=== PATIENT | female | born 1955 | race Caucasian/White ===

== ENCOUNTER → 2016-12-04 | Outpatient (CLI) | payer BC ==
--- NOTE | 2016-12-04 15:30 | BD ---
EXAMINATION TYPE: MG DEXA axial skeleton. DATE OF EXAM: 12/04/2016 1:42 PM COMPARISON: 2013 CLINICAL HISTORY: post menopausal Height: 5'7 Weight: 165 FRAX RISK QUESTIONS: Alcohol (3 or more units per day): no Family History (Parent hip fracture): no Glucocorticoids (More than 3mos): no (Ex: prednisone, prednisolone, methylprednisolone, dexamethasone, and hydrocortisone). History of Fracture in Adulthood: no Secondary Osteoporosis: 1. Type 1 Diabetes: no 2. Hyperthyroidism: no 3. Menopause before 45: no 4. Malnutrition: no 5. Chronic liver disease: no Rheumatoid Arthritis: no Current Tobacco Use: no RISK FACTORS HISTORY OF: Drink Alcohol: Postmenopausal woman: MEDICATIONS: Thyroid Medications: Which medication: Synthroid How Lon thyroid cancer Additional Medications: depression, blood pressure Additional History: 1981 thyroid cancer EXAM MEASUREMENTS: Bone mineral densitometry was performed using the [employer] System. Bone mineral density as measured about the Lumbar spine is: ----- L1-L4(G/cm2): 1.337 T Score Values are as follows: ----- L2: 1.5 ----- L3: 1.9 ----- L4: 1.8 ----- L1-L4.3 Bone mineral density has: Decreased -1.0% since study of: 11/03/2013 Bone mineral density about the R hip (g/cm2): 0.807 Bone mineral density about the L hip (g/cm2): 0.843 T Score values are as follows: -----R Neck: -1.7 -----L Neck: -1.4 -----R Intertrochanter: -0.8 -----L Intertrochanter: -1.4 Bone mineral density has: Decreased -1.1% since study of: 11/03/2013 IMPRESSION: Osteopenia (T Score between -2.5 and -1 as noted by T score values: Blade Hips There is slightly increased risk of fracture and the patient may be considered for treatment. Re-Screen 1-2 years. NOTE: T-SCORE=SD OF THE YOUNG ADULT MEAN.
--- NOTE | 2016-12-06 13:36 | MM ---
Reason for exam: screening (asymptomatic). Last mammogram was performed 8 years ago. History: Patient is postmenopausal. Family history of breast cancer in paternal grandmother at age 53. Physical Findings: A clinical breast exam by your physician is recommended on an annual basis and results should be correlated with mammographic findings. MG 3D Screening Mammo W/Cad Bilateral CC and MLO view(s) were taken. Prior study comparison: December 15, 2008, mammogram, performed at [facility]. The breast tissue is heterogeneously dense. This may lower the sensitivity of mammography. No significant changes when compared with prior studies. ASSESSMENT: Benign, BI-RAD 2 RECOMMENDATION: Routine screening mammogram of both breasts in 1 year.
== END | disposition home or self-care (01) ==
LOC: RADMAMWWP 13:34
PROVIDERS: ATTEND Family Medicine
DX: Z12.31 Encounter for screening mammogram for malignant neoplasm of breast (principal); Z78.0 Asymptomatic menopausal state; M85.88 Other specified disorders of bone density and structure, other site
CPT/HCPCS: 77080; 77063; G0202

== ENCOUNTER → 2017-01-15 | Outpatient (CLI) | payer BC | END | disposition home or self-care (01) | LOC: LABWHC1 12:56 | PROVIDERS: ATTEND Internal Medicine Endocrinology, Diabetes & Metabolism | DX: C73 Malignant neoplasm of thyroid gland (principal) | CPT/HCPCS: 36415; 84432; 84439; 84443; 86800 ==

== ENCOUNTER → 2018-03-22 | Outpatient (CLI) | payer BC ==
[2018-03-22 12:07] LABS: T4, Free (Free Thyroxine) 1.81 ng/dL (0.78-2.19)
[2018-03-22 19:49] LABS: Thyroglobulin <0.20 ng/mL (1.60-59.90)
== END | disposition home or self-care (01) ==
LOC: LABWHC1 11:15
PROVIDERS: ATTEND Internal Medicine Endocrinology, Diabetes & Metabolism
DX: C73 Malignant neoplasm of thyroid gland (principal); E89.0 Postprocedural hypothyroidism; M89.9 Disorder of bone, unspecified
CPT/HCPCS: 36415; 84432; 84439; 84443; 86800

== ENCOUNTER → 2018-07-16 | Outpatient (CLI) | payer MEDICARE, BC ==
[2018-07-16 17:57] LABS: T4, Free (Free Thyroxine) 1.3 ng/dL (0.80-1.80)
== END | disposition home or self-care (01) ==
LOC: LABWHC1 10:13
PROVIDERS: ATTEND Internal Medicine Endocrinology, Diabetes & Metabolism
DX: E03.9 Hypothyroidism, unspecified (principal); E55.9 Vitamin D deficiency, unspecified
CPT/HCPCS: 36415; 84439; 84443

== ENCOUNTER → 2018-07-16 | Outpatient (CLI) | payer MEDICARE, BC ==
--- NOTE | 2018-07-16 11:27 | US ---
EXAMINATION TYPE: US thyroid st tissue head/neck DATE OF EXAM: 07/16/2018 COMPARISON: F/U CLINICAL HISTORY: E04.1 THYROID NODULE. GLAND SIZE: Right Lobe: Surgically absent Left Lobe: 3.8 x 0.8 x 1.6 cm Isthmus Thickness: 0.28 cm NODULES RIGHT: # of nodules measured on right: 0 LEFT: # of nodules measured on left: 1 1. 0.5 X 0.6 x 0.5 cm hypoechoic solid nodule at the mid pole with well-defined margins. This nodu le is wider than tall and shows no intranodular vascularity. Prior size: 0.6 x 0.5 x 0.4 cm ISTHMUS: # of nodules measured in the isthmus: 1 1. 0.3 X 0.2 x 0.3 cm hypoechoic solid nodule at the left pole with well-defined margins. This nod ule is wider than tall and shows intranodular vascularity. Prior size: 0.4 x 0.2 x 0.3 cm Bilateral neck scanned, no evidence of lymphadenopathy. IMPRESSION: 1. Subcentimeter nodules. 2. No recurrent masses right thyroid bed
== END | disposition home or self-care (01) ==
LOC: RADUSWWP 09:43
PROVIDERS: ATTEND Internal Medicine Endocrinology, Diabetes & Metabolism
DX: E04.2 Nontoxic multinodular goiter (principal)
CPT/HCPCS: 76536

== ENCOUNTER → 2019-01-23 | Outpatient (CLI) | payer BC, MEDICARE ==
--- NOTE | 2019-01-24 09:57 | MM ---
Reason for exam: screening (asymptomatic). Last mammogram was performed 2 years and 2 months ago. History: Patient is postmenopausal, history of other cancer, and had first child at age 33. Family history of breast cancer in paternal grandmother at age 53. Physical Findings: A clinical breast exam by your physician is recommended on an annual basis and results should be correlated with mammographic findings. MG 3D Screening Mammo W/Cad Bilateral CC and MLO view(s) were taken. Prior study comparison: December 04, 2016, bilateral MG 3d screening mammo w/cad. December 15, 2008, mammogram, performed at [facility]. The breast tissue is heterogeneously dense. This may lower the sensitivity of mammography. No significant changes when compared with prior studies. ASSESSMENT: Benign, BI-RAD 2 RECOMMENDATION: Routine screening mammogram of both breasts in 1 year.
== END | disposition home or self-care (01) ==
LOC: RADMAMWWP 10:51
PROVIDERS: ATTEND Family Medicine
DX: Z12.31 Encounter for screening mammogram for malignant neoplasm of breast (principal)
CPT/HCPCS: 77063; 77067

== ENCOUNTER → 2019-07-28 | Outpatient (CLI) | payer BC, MEDICARE ==
[2019-07-29 01:56] LABS: Thyroid Peroxidase Antibodies <28.0 U/mL (0.0-60.0)
[2019-07-29 02:01] LABS: T4, Free (Free Thyroxine) 1.9 ng/dL (0.80-1.80)
== END | disposition home or self-care (01) ==
LOC: LABWHC1 16:23
PROVIDERS: ATTEND Internal Medicine
DX: C73 Malignant neoplasm of thyroid gland (principal)
CPT/HCPCS: 36415; 84439; 84443; 86376; 86800

== ENCOUNTER → 2020-08-30 | Outpatient (CLI) | payer BC, MEDICARE ==
--- NOTE | 2020-08-30 08:41 | CT ---
EXAMINATION TYPE: CT chest wo con DATE OF EXAM: 08/30/2020 COMPARISON: None HISTORY: 65-year-old female with dyspnea and atrial fibrillation (R06.00, Z87.891) TECHNIQUE: Contiguous axial scanning of the chest without IV contrast. Coronal and sagittal reconstru ctions performed. CT DLP: 189.0 mGycm Automated exposure control for dose reduction was used. FINDINGS: Heart normal size without pericardial effusion. Aortic root measures 4.0 cm. Ascending aorta aneurysmal at 4.3 cm. Conventional arch vessel branching anatomy. Minimal atherosclerotic calcifications distal aortic arch. Small calcified left hilar lymph nodes. No thoracic lymphadenopathy by CT size criteria. Some strandy atelectasis or scar within the anterior right midlung. Some additional strandy atelectas is inferior lingula. 4 mm left basilar pulmonary nodule, axial image 55. 3 mm subpleural pulmonary nodule periphery of the left upper lobe, axial image 8. No consolidation or pleural effusion. Tiny hiatal hernia. Visualized upper abdomen otherwise shows a 6.1 cm hypodense lesion within the upp er pole of the left kidney inadequately characterized on this noncontrast CT, suspected cyst. Bones: Mild degenerative change at the shoulders. Mild multilevel degenerative disc disease within th e thoracic spine. Scattered facet arthropathy of the lower thoracic spine. IMPRESSION: 1. A couple pulmonary nodules measuring up to 4 mm. Twelve-month follow-up CT recommended to reassess . 2. No acute pulmonary process. 3. Borderline aneurysmal aortic root at 4.0 cm and mildly aneurysmal ascending aorta at 4.3 cm. 4. A 6.1 cm hypodense lesion upper pole left kidney incompletely characterized on this noncontrast CT . A benign cyst is suspected and should be confirmed with a renal ultrasound.
== END | disposition home or self-care (01) ==
LOC: RADCTMAIN 07:29
PROVIDERS: ATTEND Family Medicine
DX: I71.2 Thoracic aortic aneurysm, without rupture (principal); R91.8 Other nonspecific abnormal finding of lung field; I48.0 Paroxysmal atrial fibrillation
CPT/HCPCS: 71250

== ENCOUNTER → 2021-04-04 | Outpatient (CLI) | payer BC, MEDICARE ==
--- NOTE | 2021-04-07 14:06 | MM ---
Reason for exam: screening (asymptomatic). Last mammogram was performed 2 years and 2 months ago. History: Patient is postmenopausal, history of other cancer, and had first child at age 33. Family history of breast cancer in paternal grandmother at age 53. Physical Findings: A clinical breast exam by your physician is recommended on an annual basis and results should be correlated with mammographic findings. MG 3D Screening Mammo W/Cad Bilateral CC and MLO view(s) were taken. Prior study comparison: January 23, 2019, bilateral MG 3d screening mammo w/cad. December 04, 2016, bilateral MG 3d screening mammo w/cad. The breast tissue is extremely dense which could obscure a lesion on mammography. Finding: There are typically benign diffuse/scattered fine calcifications in both breasts. No significant changes in finding since January 23, 2019 and December 04, 2016. ASSESSMENT: Benign, BI-RAD 2 RECOMMENDATION: Routine screening mammogram of both breasts in 1 year.
== END | disposition home or self-care (01) ==
LOC: RADMAMWWP 09:19
PROVIDERS: ATTEND Family Medicine
DX: Z12.31 Encounter for screening mammogram for malignant neoplasm of breast (principal)
CPT/HCPCS: 77063; 77067

== ENCOUNTER 2022-11-24 07:57 | Day surgery (SDC) | payer BC, MEDICARE ==
[2022-11-21 15:57] VITALS: BMI 25.0
[2022-11-24 08:47] VITALS: BP 152/71; PULSE 58; RESP 16; TEMP 97.5
== END 2022-11-24 09:10 | disposition home or self-care (01) ==
LOC: OR 07:57
PROVIDERS: ATTEND Internal Medicine
DX: I48.11 Longstanding persistent atrial fibrillation (principal); Z53.9 Procedure and treatment not carried out, unspecified reason

== ENCOUNTER → 2023-02-06 | Outpatient (CLI) | payer MEDICARE ==
[2023-02-06 21:39] LABS: Basophils # (A) 0.03 X 10*3/uL (0.00-0.10); Basophils % (A) 0.7 %; Eosinophils # (A) 0.08 X 10*3/uL (0.04-0.35); Eosinophils % (A) 1.8 %; HCT 42.1 % (37.2-46.3); HGB 13.2 g/dL (12.0-15.0); Immature Grans, Automated 0.5 %; Lymphocytes # (A) 1.12 X 10*3/uL (0.90-5.00); Lymphocytes % (A) 25.5 %; MCH 28.8 pg (27.0-32.0); MCHC 31.4 g/dL (32.0-37.0); MCV 91.9 fL (80.0-97.0); Mean Platelet Volume 9.7 fL (9.5-12.2); Monocytes # (A) 0.38 X 10*3/uL (0.20-1.00); Monocytes % (A) 8.7 %; NRBC Per 100 WBC 0 /100 WBCS (0.0-0.0); Neutrophils # (A) 2.76 X 10*3/uL (1.80-7.70); Neutrophils % (A) 62.8 %; Platelet Count 246 X 10*3/uL (140-440); RBC 4.58 X 10*6/uL (4.10-5.20); RDW 13.7 % (11.5-14.5); WBC 4.39 X 10*3/uL (4.50-10.00)
[2023-02-06 22:51] LABS: African American GFR (CKD) 74.8 (60.0-200.0); Anion Gap 11.2 mmol/L (10.00-18.00); Blood Urea Nitrogen 14.2 mg/dL (9.0-27.0); Carbon Dioxide 26.2 mmol/L (20.0-27.5); Non-African American GFR(CKD) 64.6 (60.0-200.0); Potassium 4.3 mmol/L (3.5-5.5)
== END | disposition home or self-care (01) ==
LOC: LABPAT 10:07
PROVIDERS: ATTEND Internal Medicine Clinical Cardiac Electrophysiology
DX: Z01.812 Encounter for preprocedural laboratory examination (principal); I48.0 Paroxysmal atrial fibrillation
CPT/HCPCS: 36415; 80051; 82565; 84520; 85025

== ENCOUNTER 2023-02-08 10:31 | Day surgery (SDC) | payer MEDICARE ==
[2023-02-08] MEDS ORDERED: ePHEDrine 50 MG/ML 1 ML VIAL ONE (11:59)
[2023-02-08] MEDS ORDERED: PROPOFOL 10 MG/ML 20 ML VIAL IV ONE (11:59)
[2023-02-08] MEDS ORDERED: fentaNYL (PF) 50 MCG/ML 2 ML AMP ONE (11:59)
[2023-02-08] MEDS ORDERED: MIDAZOLAM 2 MG/2 ML VIAL ONE (11:59)
[2023-02-08] MEDS ORDERED: PHENYLEPHRINE-0.9% NACL SYG 1,000 MCG/10 ML SYRINGE ONE (11:59)
[2023-02-08] MEDS ORDERED: LIDOCAINE 2% INJ 20 MG/ML (2 ML VIAL) ONE (11:59)
[2023-02-08] MEDS ORDERED: HEPARIN SODIUM,PORCINE 10,000 UNIT/ML 1 ML VIAL ONE (11:59)
[2023-02-08] MEDS ORDERED: SUCCINYLCHOLINE CHLORIDE 200 MG/10 ML VIAL IV ONE (11:59)
[2023-02-08] MEDS ORDERED: WATER FOR INJECTION, STERILE 10 ML VIAL IV ONE (11:59)
[2023-02-08] MEDS: SODIUM CHLORIDE 0.9% 1,000 ML IV SCH (12:02)
[2023-02-08] MEDS ORDERED: LIDOCAINE 1% INJ 10MG/ML (20 ML MDV) ONE (12:34)
[2023-02-08] MEDS ORDERED: HEPARIN SOD,PORK IN 0.45% NACL 25,000 UNIT in 0.45% NACL 1 250ML.BAG IV ONE (12:40)
[2023-02-08] MEDS ORDERED: LIDOCAINE 1% INJ 10MG/ML (20 ML MDV) SQ ONE (12:53)
[2023-02-08] MEDS ORDERED: IOPAMIDOL-250 100ML BTL IV ONE (14:37)
[2023-02-08] MEDS ORDERED: ACETAMINOPHEN TAB 325 MG TAB PO PRN (15:53)
--- NOTE | 2023-02-08 16:02 | P.HPCAR ---
History of Present Illness This is Dr. Smith dictating a consult on this patient The patient was interviewed and examined IMPRESSION / ASSESSMENT: Very long paroxysm of atrial fibrillation, failed amiodarone, with tiredness fatigue and dizzy spells Increased frequency over the last one year history of: About 1.5 y back Aortic regurgitation Mild ascending aortic aneurysm Dyslipidemia history of hypothyroidism on replacement therapy Moderately dilated left atrium with 3+ aortic regurgitation and 2+ mitral regurgitation PLAN: A. fib ablation, continue ELIQUIS HPI Patient continues to have atrial fibrillation, long paroxysms with RVR and quite symptomatic She is already on amiodarone and has failed therapy During atrial fibrillation she exhibits a left bundle branch block pattern on the EKG The episodes have been increasing in frequency and duration over the last one year Within the last week or so no loss of consciousness no chest discomfort no undue shortness of breath No respiratory symptoms no viral infections for bronchitis ROS: No fever chills or rigors, no cough, phlegm or expectoration, no nausea, vomiting or diarrhea, no hematuria, dysuria, no musculoskeletal complaints, no strokes or seizures, no skin lesions. EXAMINATION: Afebrile, pulse rate in the 60s, heart sounds are normal, normal S1 and normal S2 Lungs no rhonchi no crackles Blood pressure is normal 103/76. No lower extremity edema REVIEW OF LABS, ECG & MEDICAL DATA Currently on losartan and thyroxine Tika ELIQUIS amiodarone and diltiazem Physical Exam Vitals: Vital Signs Temp Pulse Resp BP Pulse Ox 02/08/23 10:38 98 F 68 18 133/76 96 Intake and Output 02/08/23 02/08/23 02/08/23 06:59 14:59 22:59 Intake Total 848 Balance 848 Intake: IV 848 Other: Weight 74.1 kg Past Medical History Past Medical History: Atrial Fibrillation, Cancer, Hyperlipidemia, Hypertension Additional Past Medical History / Comment(s): SOB,"2 leaky heart valves", enlarged aorta-not sure location, skin CA History of Any Multi-Drug Resistant Organisms: None Reported Past Surgical History: Tonsillectomy Additional Past Surgical History / Comment(s): partial thyroidectomy Past Anesthesia/Blood Transfusion Reactions: No Reported Reaction, Motion Sickness Additional Past Anesthesia/Blood Transfusion Reaction / Comment(s): No hx blood transfusion Smoking Status: Former smoker - Past Family History Mother Family Medical History: No Reported History Brother(s) Additional Family Medical History / Comment(s): "clot in the heart" Physical Examination Vital Signs Temp Pulse Resp BP Pulse Ox 02/08/23 10:38 98 F 68 18 133/76 96 Intake and Output 02/08/23 02/08/23 02/08/23 06:59 14:59 22:59 Intake Total 848 Balance 848 Intake: IV 848 Other: Weight 74.1 kg Results Current Medications Generic Name Dose Route Start Last Admin Trade Name Freq PRN Reason Stop Dose Admin Acetaminophen 650 mg 02/08/23 15:53 Acetaminophen Tab 325 Mg Tab PO 03/10/23 15:54 Q6HR PRN Mild Pain (Scale 1 to 3) Amiodarone HCl 100 mg 02/09/23 09:00 Amiodarone 100 Mg Tab PO 03/11/23 09:01 DAILY GUERRERO Apixaban 5 mg 02/08/23 21:00 Apixaban 5 Mg Tab PO 03/10/23 21:01 BID [facility] Protocol Ezetimibe 10 mg 02/09/23 09:00 Ezetimibe 10 Mg Tab PO 03/11/23 09:01 DAILY GUERRERO Sodium Chloride 1,000 mls @ 50 mls/hr 02/08/23 06:08 02/08/23 12:02 Saline 0.9% IV 03/10/23 06:09 820 mls .Q20H GUERRERO Administration Acetaminophen 1,000 mg/ IV 100 mls @ 400 mls/hr 02/08/23 15:53 Solution IVPB 02/08/23 16:07 ONCE ONE Losartan Potassium 25 mg 02/09/23 09:00 Losartan 25 Mg Tab PO 03/11/23 09:01 DAILY GUERRERO Non-Formulary Medication 150 mcg 02/08/23 16:00 Levothyroxine Sodium [Synthroid] PO 03/10/23 16:01 SUTUWETHSA GUERRERO Non-Formulary Medication 175 mcg 02/09/23 15:52 Levothyroxine Sodium [Synthroid] PO 03/11/23 15:53 MOFR GUERRERO Sertraline HCl 100 mg 02/09/23 09:00 Sertraline 100 Mg Tab PO 03/11/23 09:01 DAILY GUERRERO Sodium Chloride 12 ml 02/08/23 15:53 Sodium Chloride 0.9% Flush 10 Ml Syringe IV 03/10/23 15:54 Q12HR PRN Line Flush Intake and Output 02/08/23 02/08/23 02/08/23 06:59 14:59 22:59 Intake Total 848 Balance 848 Intake: IV 848 Other: Weight 74.1 kg Patient Weight 02/09/23 06:59 Weight 74.1 kg
--- NOTE | 2023-02-08 16:09 | P.EPPROC ---
- EP Procedure Note Electrophysiology Procedure Note: PROCEDURE A. fib ablation with PVI and left atrial roof ablation and 50 transseptal ablation DIAGNOSIS Long paroxysms of Atrial fibrillation, symptomatic, refractory to therapy with amiodarone RESULT No left atrial appendage mass seen on intracardiac echo/large left atrial appendage Evidence of pericardial thickening on intracardiac echo, preserved LV systolic function with septal bulge Successful A. fib ablation/pulmonary vein isolation of all veins using cryo- ablation Complete entrance block in all 4 veins confirmed No evidence for phrenic nerve injury Left atrial roof ablation with termination of atrial fibrillation Esophageal deflection YES, left-sided esophagus PROCEDURE DETAILS Written informed consent prior to procedure. Patient brought to the EP lab. General anesthesia given. Heparin administered. A city maintained above 300 seconds Both groins prepped and draped per protocol and venous sheaths placed. Esophagus intubated, circa catheter for temperature monitoring an endoscope for possible esophageal deflection. Phrenic nerve monitoring performed. Esophageal temperature monitoring performed. Esophageal deflection performed if circa catheter overlapping with the balloon or circa temperature less than 27.5C Intracardiac echocardiography performed. Pericardium evaluated. Left atrial appendage evaluated. Left atrium evaluated along with pulmonary veins Transseptal catheterization performed under fluoroscopic guidance and intracardiac echo guidance Cryoablation sheath exchanged, balloon catheter along with achieve catheter placed in the left atrium. Pulmonary veins isolated in the following sequence: Left superior pulmonary vein followed by left inferior pulmonary vein, followed by right inferior pulmonary vein and lastly right superior pulmonary vein. Phrenic nerve stimulation along with capture thresholds within the SVC and right superior pulmonary vein to identify the phrenic nerve proximity to the cryo- balloon. Pulmonary veins isolated and confirmed with entrance and exit block. Phrenic nerve integrity confirmed at the end of the procedure Ablation of the left atrial roof performed with sequential lesions from the left superior to the right superior pulmonary veins. Ablation of the electrograms confirmed When the line was completed, atrial fibrillation terminated during the last ablation and the patient converted to sinus rhythm Ablation of the left atrial septum performed with cannulation of the superior branch of the right inferior as well as the the inferior branch of the right superior vein to achieve ablation of the posterior septum of the left atrium. Ablation of electrograms confirmed Diagnostic catheters for the high right atrium, His bundle, coronary sinus placed. LA and RA pressures recorded RA pressure: 14/1/8 LA pressure: 15/3/9 Diagnostic EP study with coronary sinus pacing and recording Baseline measurements: Sinus cycle length 980 ms, IA interval 157 ms, QRS 112 and QT 410 ms AH 82 ms and HV 44 ms Sinus recovery times at 605 100 ms were 1068 and 1078 ms With straight pacing from the coronary sinus atrial fibrillation was induced After successful PVI and left atrial septal ablation, atrial fibrillation terminated with completion of the left atrial roof ablation Venous sheaths were removed and hemostasis assured with a closure device. Patient extubated and transferred to recovery Increase procedural time During ablation multiple attempts had to be made to move the esophagus a safe distance of the from the pulmonary vein draining cryoablation, to avoid excessive thermal cooling of the esophagus This took extra time and effort to keep the esophagus a safe distance away from the cryoablation balloon. Multiple attempts needed for successful cryoablation isolation of the common left pulmonary vein. This is a very large vein and multiple lesions were applied around the antrum the completely isolate this common pulmonary vein at an antral level. The esophagus was in close proximity and multiple attempts were needed to sequentially deflect the esophagus away from the prior balloon to minimize thermal injury to the esophagus PROCEDURES PERFORMED Diagnostic EP study CS pacing and recording Left and right transseptal catheterization Catheter the mapping of the tachycardia Intracardiac echocardiography Pulmonary vein isolation with transseptal and comprehensive EPS, 13229 Extended procedure duration Left atrial roof line, +[id number] Linear ablation left septum, left atrium, +[id number]
--- NOTE | 2023-02-08 16:15 | P.PRLE ---
RE: Kena Pham Dear May Kena Pham has symptomatically atrial fibrillation with a very long paroxysms that became worse about 6 months after she developed COVID. Today she underwent a diagnostic EP study and successful A. fib ablation. 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 Following that we will able to induce atrial fibrillation once again and therefore left atrial roof line was made Upon completion of the left atrial roof ablation for A. fib terminated and she went back into sinus rhythm Hopefully this results in significant reduction in her A. fib episodes and pertinent Amiodarone may be discontinued after 4 weeks Thank you for entrusting me with the care of the patient Warm regards Sincerely Jordan Smith
[2023-02-08] MEDS ORDERED: ACETAMINOPHEN IV (For NPO) 1,000 MG in EMPTY BAG 1 BAG IVPB ONE (16:30)
[2023-02-08] MEDS: APIXABAN 5 MG TAB PO SCH (19:48)
[2023-02-09] MEDS: SODIUM CHLORIDE 0.9% 1,000 ML IV SCH (02:15)
[2023-02-09 02:47] VITALS: PULSE 64
[2023-02-09] MEDS ORDERED: LEVOTHYROXINE 88 MCG TAB PO SCH (06:30)
--- NOTE | 2023-02-09 07:49 | P.DS ---
Providers Attending physician: Jordan Smith Primary care physician: [facility] Hospital Course: Patient was resting comfortably in bed. Mild sore throat No chest discomfort No breathing trouble On examination blood pressure 6/60 4 mmHg pulse rate in the 60s afebrile Breath sounds are clear no rhonchi no crackles Heart sounds S1 and S2 are normal Impression Long paroxysms of atrial fibrillation with RVR Hypertension Status post pulmonary vein isolation, ablation of the left atrial septum and left atrial roof ablation Atrial fibrillation terminated once the roof line was completed Plan Continue ELIQUIS Stop amiodarone after 6 weeks Hold diltiazem until seen in the office in a week's time Continue losartan Patient may go home today after lunch if hemodynamically stable Patient Condition at Discharge: Stable Plan - Discharge Summary New Discharge Prescriptions: Continue Levothyroxine Sodium [Synthroid] 150 mcg PO SUTUWETHSA Apixaban [Eliquis] 5 mg PO BID dilTIAZem HCL [dilTIAZem [id number] ER (CD)] 240 mg PO DAILY Cholecalciferol (Vitamin D3) [Vitamin D3 (125 MCG = 5,000 IU)] 50 mcg PO DAILY Levothyroxine Sodium [Synthroid] 175 mcg PO MOFR Sertraline [Zoloft] 100 mg PO DAILY Losartan [Cozaar] 25 mg PO DAILY Ezetimibe [Zetia] 10 mg PO DAILY Amiodarone [Cordarone] 100 mg PO DAILY Discharge Medication List Apixaban [Eliquis] 5 mg PO BID 11/21/22 [History] Cholecalciferol (Vitamin D3) [Vitamin D3 (125 MCG = 5,000 IU)] 50 mcg PO DAILY 11/21/22 [History] Ezetimibe [Zetia] 10 mg PO DAILY 11/21/22 [History] Levothyroxine Sodium [Synthroid] 150 mcg PO SUTUWETHSA 11/21/22 [History] Levothyroxine Sodium [Synthroid] 175 mcg PO MOFR 11/21/22 [History] Losartan [Cozaar] 25 mg PO DAILY 11/21/22 [History] Sertraline [Zoloft] 100 mg PO DAILY 11/21/22 [History] dilTIAZem HCL [dilTIAZem [id number] ER (CD)] 240 mg PO DAILY 11/21/22 [History] Amiodarone [Cordarone] 100 mg PO DAILY 02/06/23 [History] Activity/Diet/Wound Care/Special Instructions: Post EP study - Ablation instructions 1. Keep access sites dry for 2 days. 2. No heavy lifting or straining for 2 days. 3. Avoid bending the hips repeatedly for 2 days. 4. You may go up and down stairs slowly Call if the following is noted 1. Bleeding, increasing swelling or pain at the access sites. 2. Increasing chest discomfort, especially upon taking a deep breath. 3. Increasing shortness of breath, at rest or with exertion. 4. Undue cough / phlegm 5. Difficulty or pain while swallowing. 6. Pain or change in color in the extremities. 7. Fever, chills, rigors. 8. Increasing headache or neurologic symptoms. 9. Dizziness, fainting, palpitations Continue ELIQUIS Continue amiodarone for now and stop it in 6 weeks Discharge Disposition: HOME SELF-CARE
[2023-02-09 07:58] VITALS: BP 106/67; RESP 16; TEMP 98.1
[2023-02-09] MEDS: APIXABAN 5 MG TAB PO SCH (08:48)
[2023-02-09] MEDS ORDERED: SERTRALINE 100 MG TAB PO SCH (09:00)
[2023-02-09] MEDS ORDERED: LOSARTAN 25 MG TAB PO SCH (09:00)
[2023-02-09] MEDS ORDERED: AMIODARONE 100 MG TAB PO SCH (09:00)
[2023-02-09] MEDS ORDERED: EZETIMIBE 10 MG TAB PO SCH (09:00)
[2023-02-10] MEDS ORDERED: LEVOTHYROXINE 75 MCG TAB PO SCH (06:30)
== END 2023-02-09 13:25 | disposition home or self-care (01) ==
LOC: CATHEP 10:31 → 6NMEDSUR 15:30 → CATHEP 02-09 13:25
PROVIDERS: ATTEND Internal Medicine Clinical Cardiac Electrophysiology
DX: I48.0 Paroxysmal atrial fibrillation (principal); I71.21 Aneurysm of the ascending aorta, without rupture; I44.7 Left bundle-branch block, unspecified; I08.1 Rheumatic disorders of both mitral and tricuspid valves; I10 Essential (primary) hypertension; E78.5 Hyperlipidemia, unspecified; E03.9 Hypothyroidism, unspecified; Z79.01 Long term (current) use of anticoagulants; Z79.890 Hormone replacement therapy; Z79.899 Other long term (current) drug therapy
CPT/HCPCS: 93656; 93657; 94760; 86900; 86901; 86850; C1894 ×2; C1769 ×3; C1760; C1730 ×2; C1759; C1893; C1733; C1766; J2250; J0330; J1644 ×2; J2001 ×2; J3010; J2370; J2704; Q9966

== ENCOUNTER → 2023-06-12 | Outpatient (CLI) | payer MEDICARE ==
--- NOTE | 2023-06-12 20:08 | BD ---
EXAMINATION TYPE: Axial Bone Density DATE OF EXAM: 06/12/2023 CLINICAL HISTORY: 68 years old Female. ICD-10 CODE: N95.9 UNSPECIFIED MENOPAUSAL AND Height: 5 ft 6 1/2 in Weight: 165 FRAX RISK QUESTIONS: Alcohol (3 or more units per day): no Family History (Parent hip fracture): no Glucocorticoids (More than 3mos): no (Ex: prednisone, prednisolone, methylprednisolone, dexamethasone, and hydrocortisone). History of Fracture in Adulthood: no Secondary Osteoporosis: 1. Type 1 Diabetes: no 2. Hyperthyroidism: no 3. Menopause before 45: no 4. Malnutrition: no 5. Chronic liver disease: no Rheumatoid Arthritis: no Current Tobacco Use: no RISK FACTORS HISTORY OF: Surgery to Spine/Hip(right/left)/Wrist (right/left): no Family History of Osteoporosis: no Active: yes Diet low in dairy products/other sources of calcium: no Postmenopausal woman: yes Take estrogen and/or progesterone medications: no Lost more than 2 inches in height since high school: no Frequent falls: no Poor Health: good Hyperparathyroidism: no Adrenal Insufficiency: no MEDICATIONS: Thyroid Medications: yes Which medication: synthroid How Lon years Additional Medications: synthroid, eliquis, blood pressure, cholesterol, Additional History: EXAM MEASUREMENTS: Bone mineral densitometry was performed using the [employer] System. Bone mineral density as measured about the Lumbar spine is: ----- L1-L4(G/cm2): 1.273 T Score Values are as follows: ----- L1: 0.0 ----- L2: 0.3 ----- L3: 1.4 ----- L4: 1.1 ----- L1-L4: 0.8 Z Score Values are as follows: ----- L1: 1.3 ----- L2: 1.7 ----- L3: 2.8 ----- L4: 2.4 ----- L1-L4: 2.1 Bone mineral density has: decreased -4.8 % since study of: 2017 Bone mineral density about the R hip (g/cm2): 0.693 Bone mineral density about the L hip (g/cm2): 0.798 T Score values are as follows: -----R Neck: -2.5 -----L Neck: -1.7 -----R Total: -1.9 -----L Total: -1.3 Z Score values are as follows: -----R Neck: -1.0 -----L Neck: -0.3 -----R Total: -0.7 -----L Total: 0.0 Bone mineral density has: decreased -7.6 % since study of: 2017 FRAX%s: The graph provided illustrates a 14.8 % chance for a major osteoporotic fx and a 3.8 % chance for the hips probability for fx in 10 years time. IMPRESSION: Osteoporosis (T Score less than -2.5). There is increased fracture risk and therapy is usually indicated based on age. Re-Screen 1-2 years. NOTE: T-SCORE=SD OF THE YOUNG ADULT MEAN.
--- NOTE | 2023-06-13 08:49 | MM ---
Reason for Exam: Screening (asymptomatic). Last mammogram was performed 2 year(s) and 3 month(s) ago. Patient History: Menarche at age 12. First Full-Term at age 33. Late child-bearing (after 30). Postmenopausal. Other cancer. Paternal grandmother had breast cancer, age 53. Risk Values: Aaliyah 5 year model risk: 2.2%. NCI Lifetime model risk: 6.3%. Prior Study Comparison: 12/04/2016 Bilateral Screening Mammogram, [facility]. 01/23/2019 Bilateral Screening Mammogram, [facility]. 04/04/2021 Bilateral Screening Mammogram, [facility]. Tissue Density: The breast tissue is heterogeneously dense. This may lower the sensitivity of mammography. Findings: Analyzed By CAD. There is no suspicious group of microcalcifications or new suspicious mass. Overall Assessment: Negative, BI-RAD 1 Management: Screening Mammogram of both breasts in [address] [facility] will attempt to contact patient to return for supplemental views and ultrasound if indicated. Patient should continue monthly self-breast exams. A clinical breast exam by your physician is recommended on an annual basis. This exam should not preclude additional follow-up of suspicious palpable abnormalities. Note on Aaliyah scores and lifetime risk: 1. A Aaliyah score greater than 3% is considered moderate risk. If this is the case, consider specialist referral to assess eligibility for a risk reducing agent. 2. If overall lifetime risk for the development of breast cancer is 20% or higher, the patient may qualify for future screening with alternating mammogram and breast MRI. Electronically signed and approved by: Lexa Crump DO
== END | disposition home or self-care (01) ==
LOC: RADBDWWP 12:34
PROVIDERS: ATTEND Student in an Organized Health Care Education/Training Program
DX: Z12.31 Encounter for screening mammogram for malignant neoplasm of breast (principal); M81.0 Age-related osteoporosis without current pathological fracture; M85.852 Other specified disorders of bone density and structure, left thigh; Z78.0 Asymptomatic menopausal state; Z80.3 Family history of malignant neoplasm of breast
CPT/HCPCS: 77063; 77067; 77080

== ENCOUNTER 2024-08-15 08:43 | Day surgery (SDC) | payer MEDICARE ==
[~2024-08-15 08:43] MED LIST: SODIUM CHLORIDE 0.9% 500 ML 500 ML IV SCH
[2024-08-15 09:16] VITALS: TEMP 97.8
[2024-08-15] MEDS: IV FLUID CONTINUATION 1,000 ML IV ONE ×3 (09:25→10:31)
[2024-08-15] MEDS: SODIUM CHLORIDE 0.9% 500 ML 500 ML IV SCH (09:27)
[2024-08-15] MEDS ORDERED: PROPOFOL 10 MG/ML 20 ML VIAL IV ONE (09:55)
[2024-08-15] MEDS ORDERED: HEPARIN SODIUM,PORCINE 10,000 UNIT/ML 1 ML VIAL ONE (09:55)
[2024-08-15] MEDS ORDERED: LIDOCAINE 1% INJ 10MG/ML (20 ML MDV) ONE (09:55)
[2024-08-15 10:03] LABS: African American GFR (CKD) >90 (>60 ml/min/1.73 sqM); Anion Gap 7 mmol/L; Blood Urea Nitrogen 19 mg/dL (7-17); Calcium 8.9 mg/dL (8.4-10.2); Carbon Dioxide 28 mmol/L (22-30); Chloride 103 mmol/L (98-107); Glucose 80 mg/dL (74-99); Non-African American GFR(CKD) 83 (>60 ml/min/1.73 sqM); Potassium 4.2 mmol/L (3.5-5.1); Sodium 138 mmol/L (137-145)
--- NOTE | 2024-08-15 10:14 | P.TEE ---
Description of Procedure(s): Procedure performed: Transesophageal Echocardiogram with color flow doppler, pulsed wave doppler and continuous wave doppler, synchronized cardioversion Moderate conscious sedation: Moderate conscious sedation was supplied by anesthesia, see separate report. Complications: none Indications: atrial flutter with RVR PROCEDURE: After the risks, benefits and alternatives of the above mentioned procedure was explained in detail with the patient, informed consent was obtained. Patient was brought to the lab in a fasting state. Patient was given sedation by anesthesia, see separate report. The throat was sprayed with Hurricane to anesthetize the throat. A lubricated Omni probe was then introduced into the esophagus and stomach and multiple views were obtained. 2D echo with color flow doppler, pulsed wave doppler and continuous wave doppler was utilized. Agitated saline bubbles were injected to assess for any intra- atrial shunt. The probe was then removed. There was no thrombus noted and therefore patient underwent synchronized cardioversion x 1 with 200J with resultant sinus rhythm. Patient tolerated the procedure well. Patient was transferred to the post procedure area in stable and satisfactory condition. FINDINGS: 1. The aortic valve is tricuspid and function normally with trace aortic insufficiency. 2. The mitral valve appears be normal with mild regurgitation. 3. Tricuspid valve appears to be normal with trace aortic insufficiency. 4. The interatrial septum is intact. No evidence of PFO. 5. Left atrial appendage is large and free of clot. 6. Left ventricular ejection fraction 55%
[2024-08-15 10:34] VITALS: RESP 16
[2024-08-15] MEDS: APIXABAN 5 MG TAB PO SCH (11:15)
[2024-08-15 11:32] VITALS: BP 124/78; PULSE 65
== END 2024-08-15 11:51 | disposition home or self-care (01) ==
LOC: OR 08:43
PROVIDERS: ATTEND Internal Medicine
DX: I35.1 Nonrheumatic aortic (valve) insufficiency (principal); I48.0 Paroxysmal atrial fibrillation; I10 Essential (primary) hypertension; E78.5 Hyperlipidemia, unspecified; E07.9 Disorder of thyroid, unspecified; F41.9 Anxiety disorder, unspecified; F32.A Depression, unspecified; Z87.891 Personal history of nicotine dependence; Z79.890 Hormone replacement therapy; Z79.899 Other long term (current) drug therapy
CPT/HCPCS: 93312; 93320; 93325; 92960; 80048; J1644; J2003; J2704

== ENCOUNTER → 2024-10-03 | Outpatient (CLI) | payer MEDICARE ==
[2024-10-03 20:20] LABS: HCT 41.5 % (37.2-46.3); HGB 13.6 g/dL (12.0-15.0); MCH 29.1 pg (27.0-32.0); MCHC 32.8 g/dL (32.0-37.0); MCV 88.7 FL (80.0-97.0); Mean Platelet Volume 9.8 FL (9.5-12.2); NRBC Per 100 WBC 0 X 10*3/uL (0.00-0.01); Platelet Count 266 X 10*3/uL (140-440); RBC 4.68 X 10*6/uL (4.10-5.20); RDW 13.5 % (11.5-14.5); WBC 5.65 X 10*3/uL (4.50-10.00)
[2024-10-03 20:49] LABS: Blood Urea Nitrogen 18.1 mg/dL (9.0-27.0); Carbon Dioxide 24.8 mmol/L (21.6-31.8); Chloride 102 mmol/L (96-109); Potassium 4.4 mmol/L (3.5-5.5); Sodium 137 mmol/L (135-145)
== END | disposition home or self-care (01) ==
LOC: LABPAT 13:30
PROVIDERS: ATTEND Internal Medicine Clinical Cardiac Electrophysiology
DX: I48.19 Other persistent atrial fibrillation (principal)
CPT/HCPCS: 80051; 82565; 84520; 85027

== ENCOUNTER → 2024-10-03 | Outpatient (CLI) | payer MEDICARE ==
--- NOTE | 2024-10-03 16:00 | US ---
EXAMINATION TYPE: US thyroid st tissue head/neck DATE OF EXAM: 10/03/2024 COMPARISON: NONE CLINICAL INDICATION: Female, 69 years old with history of C73 MALIGNANT NEOPLASM OF THYROID GLAND; Ri ght thyroid gland removed. TECHNIQUE: Grayscale and color Doppler imaging of the thyroid gland. FINDINGS: GLAND SIZE: Right Lobe: Surgically absent Left Lobe: 4.2 x 1.4 x 1.1 cm Overall Parenchyma: homogeneous Isthmus Thickness: 0.3 cm NODULES RIGHT: Surgically absent LEFT: # of nodules measured on left: 1 1. 0.7 X 0.6 x 0.6 cm, upper mid, solid or almost completely solid, hypoechoic nodule, which is wid er than tall, with smooth margins, without echogenic foci. Prior size: 0.5 x 0.6 x 0.5 cm ISTHMUS: # of nodules measured in the isthmus: 1 1. 0.4 X 0.2 x 0.3 cm solid or almost completely solid, hypoechoic nodule, which is taller than wid e, with smooth margins, without echogenic foci. Prior size: 0.3 x 0.2 x 0.3 cm Bilateral neck scanned, no evidence of lymphadenopathy. IMPRESSION: Persistent prominent heterogeneous left thyroid lobe with stable 2 small subcentimeter so lid nodules. [facility], , 10/03/2024 3:57 PM
[2024-10-03 21:40] LABS: T4, Free (Free Thyroxine) 1.63 ng/dL (0.80-1.80)
== END | disposition home or self-care (01) ==
LOC: RADUSWWP 13:25
PROVIDERS: ATTEND Internal Medicine
DX: C73 Malignant neoplasm of thyroid gland (principal)
CPT/HCPCS: 76536; 84432; 84439; 84443; 86800

== ENCOUNTER 2025-02-06 10:05 | Inpatient (IN) | payer MEDICARE ==
--- NOTE | 2025-02-06 10:36 | ED ---
SOB HPI - General Chief Complaint: Shortness of Breath Stated Complaint: SOB,Afib Time Seen by Provider: 02/06/25 10:14 Source: patient Mode of arrival: ambulatory Limitations: no limitations - History of Present Illness Initial Comments: 69-year-old female with past medical history of A-fib, a flutter with ablation who presents to the emergency department with rapid heart rate. Patient has had issues with shortness of breath and racing heart when she lays down at night. She follows with Dr. Ewing and with Dr. Smith. She had an ablation 3 months ago. Continues to take metoprolol and Eliquis. She did take her medications this morning. She states she wore heart monitor a week ago and is waiting for results. Symptoms only seem to come on during the middle of the night. She feels like she cannot breathe. Does admit to some lower extremity swelling. No fevers, chills or cough. No history of congestive heart failure or coronary disease. No other alleviating, precipitating or modifying factors - Related Data Home Medications Medication Instructions Recorded Confirmed Apixaban [Eliquis] 5 mg PO BID 11/21/22 02/06/25 Ezetimibe [Zetia] 10 mg PO DAILY 11/21/22 02/06/25 Levothyroxine Sodium [Synthroid] 150 mcg PO SUTUWETHSA 11/21/22 02/06/25 Levothyroxine Sodium [Synthroid] 175 mcg PO MOFR 11/21/22 02/06/25 Losartan [Cozaar] 25 mg PO DAILY 11/21/22 02/06/25 Sertraline [Zoloft] 100 mg PO DAILY 11/21/22 02/06/25 Metoprolol Succinate [Metoprolol 50 mg PO DAILY 08/11/24 02/06/25 Succinate ER] Cholecalciferol (Vitamin D3) 50 mcg PO DAILY 02/06/25 02/06/25 [Vitamin D3 (50 Mcg = 2000 Iu)] Sertraline [Zoloft] 50 mg PO DAILY 02/06/25 02/06/25 hydrOXYzine pamoate [Vistaril] 50 mg PO HS 02/06/25 02/06/25 Allergies Allergy/AdvReac Type Severity Reaction Status Date / Time No Known Allergies Allergy Verified 02/06/25 12:30 Review of Systems ROS Statement: Those systems with pertinent positive or pertinent negative responses have been documented in the HPI. ROS Other: All systems not noted in ROS Statement are negative. Past Medical History Past Medical History: Atrial Fibrillation, Cancer, Hyperlipidemia, Hypertension, Osteoarthritis (OA), Thyroid Disorder Additional Past Medical History / Comment(s): SOB ,"2 leaky heart valves", enlarged aorta-not sure location, skin CA, see dr Smith's h & p History of Any Multi-Drug Resistant Organisms: None Reported Past Surgical History: Cardiac Ablation, Tonsillectomy Additional Past Surgical History / Comment(s): partial thyroidectomy Past Anesthesia/Blood Transfusion Reactions: No Reported Reaction, Motion Sickness Additional Past Anesthesia/Blood Transfusion Reaction / Comment(s): No hx blood transfusion Past Psychological History: Anxiety, Depression Smoking Status: Former smoker - Past Family History Mother Family Medical History: AFIB Brother(s) Additional Family Medical History / Comment(s): "clot in the heart" General Exam Limitations: no limitations General appearance: alert, in no apparent distress Head exam: Present: atraumatic, normocephalic, normal inspection Eye exam: Present: normal appearance, PERRL, EOMI. Absent: scleral icterus, conjunctival injection, periorbital swelling ENT exam: Present: normal exam, mucous membranes moist Neck exam: Present: normal inspection. Absent: tenderness, meningismus, lymphadenopathy Respiratory exam: Present: normal lung sounds bilaterally. Absent: respiratory distress, wheezes, rales, rhonchi, stridor Cardiovascular Exam: Present: tachycardia, irregular rhythm, normal heart sounds. Absent: systolic murmur, diastolic murmur, rubs, gallop, clicks GI/Abdominal exam: Present: soft, normal bowel sounds. Absent: distended, tenderness, guarding, rebound, rigid Extremities exam: Present: normal inspection, full ROM, normal capillary refill. Absent: tenderness, pedal edema, joint swelling, calf tenderness Back exam: Present: normal inspection Neurological exam: Present: alert, oriented X3, CN II-XII intact Psychiatric exam: Present: normal affect, normal mood Skin exam: Present: warm, dry, intact, normal color. Absent: rash Course Vital Signs 02/06/25 02/06/25 02/06/25 10:08 10:22 10:31 Temperature 97.5 F L Pulse Rate 148 H 151 H Pulse Rate [ 154 H Club Lounge Attendant ] Respiratory 22 17 Rate Blood Pressure 118/82 O2 Sat by Pulse 94 L Oximetry 02/06/25 02/06/25 02/06/25 11:15 11:30 12:00 Temperature Pulse Rate 146 H 75 75 Pulse Rate [ [employer] Lounge Attendant ] Respiratory 20 16 12 Rate Blood Pressure 96/83 96/83 107/77 O2 Sat by Pulse 92 L 91 L 91 L Oximetry 02/06/25 02/06/25 12:30 13:00 Temperature Pulse Rate 76 76 Pulse Rate [ Club Lounge Attendant ] Respiratory 19 17 Rate Blood Pressure 111/79 118/80 O2 Sat by Pulse 95 93 L Oximetry Medical Decision Making - Medical Decision Making Was pt. sent in by a medical professional or institution (, PA, ANTIQUE REFINISHER, urgent care, hospital, or skilled nursing...) When possible be specific @ -[No] Did you speak to anyone other than the patient for history (EMS, parent, family, police, friend...)? What history was obtained from this source @ -[No] Did you review nursing and triage notes (agree or disagree)? Why? @ -[I reviewed and agree with nursing and triage notes] Were old charts reviewed (outside hosp., previous admission, EMS record, old EKG, old radiological studies, urgent care reports/EKG's, skilled nursing records)? Report findings @ -[No old charts were reviewed] Differential Diagnosis (chest pain, altered mental status, abdominal pain women, abdominal pain men, vaginal bleeding, weakness, fever, dyspnea, syncope, headache, dizziness, GI bleed, back pain, seizure, CVA, palpatations, mental health, musculoskeletal)? @ -[not applicable] EKG interpreted by me (3pts min.). @ -Yes and demonstrates possible atrial flutter with a rate of 151. QRS 142. QRS 101. QTc of 393. No acute ST segment elevations or depressions Repeat EKG done at 1213 demonstrates continued a flutter with a rate of 76. QRS 96. QTc of 448. Inverted T waves in leads III, aVF as well as V3 through V5 X-rays interpreted by me (1pt min.). @ -[None done] CT interpreted by me (1pt min.). @ -[None done] U/S interpreted by me (1pt. min.). @ -[None done] What testing was considered but not performed or refused? (CT, X-rays, U/S, labs)? Why? @ -[None] What meds were considered but not given or refused? Why? @ -[None] Did you discuss the management of the patient with other professionals (professionals i.e. , PA, ANTIQUE REFINISHER, lab, RT, psych nurse, social sciences lecturer, trademark paralegal, teacher, senior officer, dependency case manager)? Give summary @ -[No] Was smoking cessation discussed for >3mins.? @ -[No] Was critical care preformed (if so, how long)? @ -[No] Were there social determinants of health that impacted care today? How? (Homelessness, low income, unemployed, alcoholism, drug addiction, transportation, low edu. Level, literacy, decrease access to med. care, custodial, rehab)? @ -[No] Was there de-escalation of care discussed even if they declined (Discuss DNR or withdrawal of care, Hospice)? DNR status @ -[No] What co-morbidities impacted this encounter? (DM, HTN, Smoking, COPD, CAD, Cancer, CVA, ARF, Chemo, Hep., AIDS, mental health diagnosis, sleep apnea, morbid obesity)? @ -[None] Was patient admitted / discharged? Hospital course, mention meds given and route, prescriptions, significant lab abnormalities, going to OR and other pertinent info. @ -[hospital course] Undiagnosed new problem with uncertain prognosis? @ -[No] Drug Therapy requiring intensive monitoring for toxicity (Heparin, Nitro, Insulin, Cardizem)? @ -[No] Were any procedures done? @ -[No] Diagnosis/symptom? @ -[default] Acute, or Chronic, or Acute on Chronic? @ -[default] Uncomplicated (without systemic symptoms) or Complicated (systemic symptoms)? @ -[default] Side effects of treatment? @ -[No] Exacerbation, Progression, or Severe Exacerbation? @ -[No] Poses a threat to life or bodily function? How? (Chest pain, USA, MD, pneumonia, PE, COPD, DKA, ARF, appy, cholecystitis, CVA, Diverticulitis, Homicidal, Suicidal, threat to staff... and all critical care pts) @ -[No] - Lab Data Result diagrams: 02/06/25 10:46 02/06/25 10:46 Lab Results 02/06/25 02/06/25 02/06/25 Range/Units 10:46 10:46 10:46 WBC 5.55 (4.50-10.00) 10*3/uL RBC 4.57 (4.10-5.20) 10*6/uL Hgb 13.3 (12.0-15.0) g/dL Hct 40.0 (37.2-46.3) % MCV 87.5 (80.0-97.0) fL MCH 29.1 (27.0-32.0) pg MCHC 33.3 (32.0-37.0) g/dL Plt Count 248 (140-440) 10*3/uL MPV 9.4 L (9.5-12.2) fL Immature Gran % (Auto) 0.2 % Neutrophils % 62.7 % Lymphocytes % 27.0 % Monocytes % 7.9 % Eosinophils % 1.8 % Basophils % 0.4 % Immature Gran # 0.01 (0.00-0.04) 10*3/uL Neutrophils # 3.48 (1.80-7.70) 10*3/uL Lymphocytes # 1.50 (0.90-5.00) 10*3/uL Monocytes # 0.44 (0.20-1.00) 10*3/uL Eosinophils # 0.10 (0.04-0.35) 10*3/uL Basophils # 0.02 (0.00-0.10) 10*3/uL PT 11.8 (10.0-12.5) sec INR 1.1 (<1.2) APTT 24.2 (22.0-30.0) sec Sodium 137 (137-145) mmol/L Potassium 3.9 (3.5-5.1) mmol/L Chloride 104 (98-107) mmol/L Carbon Dioxide 21 L (22-30) mmol/L Anion Gap 12 mmol/L BUN 17 (7-17) mg/dL Creatinine 0.75 (0.52-1.04) mg/dL Est GFR (CKD-EPI)AfAm >90 (>60 ml/min/1.73 sqM) Est GFR (CKD-EPI)NonAf 81 (>60 ml/min/1.73 sqM) Glucose 88 (74-99) mg/dL Plasma Lactic Acid Jackson (0.7-2.0) mmol/L Calcium 9.4 (8.4-10.2) mg/dL Total Bilirubin 0.8 (0.2-1.3) mg/dL AST 20 (14-36) U/L ALT 24 (4-34) U/L Alkaline Phosphatase 56 (38-126) U/L Troponin I (0.000-0.034) ng/mL NT-Pro-B Natriuret Pep 4080 pg/mL Total Protein 6.4 (6.3-8.2) g/dL Albumin 3.9 (3.5-5.0) g/dL TSH 1.820 (0.465-4.680) mIU/L 02/06/25 02/06/25 Range/Units 10:46 10:46 WBC (4.50-10.00) 10*3/uL RBC (4.10-5.20) 10*6/uL Hgb (12.0-15.0) g/dL Hct (37.2-46.3) % MCV (80.0-97.0) fL MCH (27.0-32.0) pg MCHC (32.0-37.0) g/dL Plt Count (140-440) 10*3/uL MPV (9.5-12.2) fL Immature Gran % (Auto) % Neutrophils % % Lymphocytes % % Monocytes % % Eosinophils % % Basophils % % Immature Gran # (0.00-0.04) 10*3/uL Neutrophils # (1.80-7.70) 10*3/uL Lymphocytes # (0.90-5.00) 10*3/uL Monocytes # (0.20-1.00) 10*3/uL Eosinophils # (0.04-0.35) 10*3/uL Basophils # (0.00-0.10) 10*3/uL PT (10.0-12.5) sec INR (<1.2) APTT (22.0-30.0) sec Sodium (137-145) mmol/L Potassium (3.5-5.1) mmol/L Chloride (98-107) mmol/L Carbon Dioxide (22-30) mmol/L Anion Gap mmol/L BUN (7-17) mg/dL Creatinine (0.52-1.04) mg/dL Est GFR (CKD-EPI)AfAm (>60 ml/min/1.73 sqM) Est GFR (CKD-EPI)NonAf (>60 ml/min/1.73 sqM) Glucose (74-99) mg/dL Plasma Lactic Acid Jackson 1.1 (0.7-2.0) mmol/L Calcium (8.4-10.2) mg/dL Total Bilirubin (0.2-1.3) mg/dL AST (14-36) U/L ALT (4-34) U/L Alkaline Phosphatase (38-126) U/L Troponin I <0.012 (0.000-0.034) ng/mL NT-Pro-B Natriuret Pep pg/mL Total Protein (6.3-8.2) g/dL Albumin (3.5-5.0) g/dL TSH (0.465-4.680) mIU/L Disposition Clinical Impression: Atrial flutter with rapid ventricular response, Pulmonary edema Disposition: ADMITTED IP TO THIS HOSP Condition: Stable Is patient prescribed a controlled substance at d/c from ED?: No Referrals: Alejandra Alva DO [Primary Care Provider] - 1-2 days Time of Disposition: 13:10 Decision to Admit Reason: Admit from EC Decision Date: 02/06/25 Decision Time: 13:10
[2025-02-06 11:09] LABS: Basophils # (A) 0.02 10*3/uL (0.00-0.10); Basophils % (A) 0.4 %; Eosinophils % (A) 1.8 %; HGB 13.3 g/dL (12.0-15.0); MCH 29.1 pg (27.0-32.0); MCHC 33.3 g/dL (32.0-37.0); MCV 87.5 fL (80.0-97.0); Mean Platelet Volume 9.4 fL (9.5-12.2); Monocytes # (A) 0.44 10*3/uL (0.20-1.00); Monocytes % (A) 7.9 %; Neutrophils # (A) 3.48 10*3/uL (1.80-7.70); Neutrophils % (A) 62.7 %; Platelet Count 248 10*3/uL (140-440); RBC 4.57 10*6/uL (4.10-5.20); RDW 13.6 % (11.5-14.5); WBC 5.55 10*3/uL (4.50-10.00)
[2025-02-06] MEDS: DILTIAZEM 5 MG/ML 5 ML VIAL IVP STA (11:13)
[2025-02-06] MEDS: DILTIAZEM 125 MG in DEXTROSE 5% IN WATER 100 ML IV SCH (11:14)
[2025-02-06 11:21] LABS: ALT 24 U/L (4-34); AST 20 U/L (14-36); African American GFR (CKD) >90 (>60 ml/min/1.73 sqM); Albumin 3.9 g/dL (3.5-5.0); Alkaline Phosphatase 56 U/L (38-126); Anion Gap 12 mmol/L; Blood Urea Nitrogen 17 mg/dL (7-17); Calcium 9.4 mg/dL (8.4-10.2); Carbon Dioxide 21 mmol/L (22-30); Chloride 104 mmol/L (98-107); Glucose 88 mg/dL (74-99); Non-African American GFR(CKD) 81 (>60 ml/min/1.73 sqM); Potassium 3.9 mmol/L (3.5-5.1); Sodium 137 mmol/L (137-145); Total Bilirubin 0.8 mg/dL (0.2-1.3); Total Protein 6.4 g/dL (6.3-8.2)
[2025-02-06 11:30] LABS: NT-Pro-B-Type Natriuretic Pept 4080 pg/mL
--- NOTE | 2025-02-06 11:45 | XR ---
EXAMINATION TYPE: XR chest 2V DATE OF EXAM: 02/06/2025 11:33 AM COMPARISON: None CLINICAL INDICATION: Female, 69 years old with history of difficulty breathing, shortness of breath TECHNIQUE: AP and lateral views FINDINGS: Heart borderline enlarged. Interstitial prominence without consolidation or pleural effusion. IMPRESSION: Borderline heart size and interstitial densities. Consider mild pulmonary vascular congestion. [facility], Workstation: [facility], 02/06/2025 11:43 AM
[2025-02-06 11:51] LABS: INR 1.1 (<1.2); Partial Thromboplastin Time 24.2 sec (22.0-30.0); Prothrombin Time 11.8 sec (10.0-12.5)
[2025-02-06] MEDS ORDERED: NALOXONE 0.4 MG/ML 1 ML VIAL IV PRN (13:12)
[2025-02-06] MEDS: NON FORMULARY DRUG (Levothyroxine Sodium [Synthroid] 175 MCG Tablet) PO SCH (13:19)
[2025-02-06] MEDS: ACETAMINOPHEN TAB 325 MG TAB PO PRN (17:18)
--- NOTE | 2025-02-06 18:44 | CA ---
Transthoracic Echo Report Name: Kena Pham Age: 69 Gender: F : 1955 Exam Date: 02/06/2025 15:15 Exam Location: [facility] Ht (in): 67 Wt (lb): 170 Ordering Physician: Cassie Prado DO Attending/Referring Phys: [id number], Eve Supervisor Publications Madelaine Collins, SUREKHA Procedure CPT: Indications: heart failure, aflutter Cardiac Hx: Technical Quality: Good Contrast 1: Total Dose (mL): Contrast 2: Total Dose (mL): MEASUREMENTS (Male / Female) Normal Values 2D ECHO LV Diastolic Diameter PLAX 4.5 cm 4.2 - 5.9 / 3.9 - 5.3 cm LV Systolic Diameter PLAX 2.6 cm IVS Diastolic Thickness 1.2 cm 0.6 - 1.0 / 0.6 - 0.9 cm LVPW Diastolic Thickness 1.4 cm 0.6 - 1.0 / 0.6 - 0.9 cm LV Relative Wall Thickness 0.6 RV Internal Dim ED PLAX 3.6 cm LA Systolic Diameter LX 4.4 cm 3.0 - 4.0 / 2.7 - 3.8 cm LV Diastolic Volume MOD BP 81.3 cm??? 67 - 155 / 56 - 104 cm??? LV Systolic Volume MOD BP 33.5 cm??? 22 - 58 / 19 - 49 cm??? LV Ejection Fraction MOD BP 58.8 % >= 55 % LV Cardiac Index MOD BP 2932.9 cm???/min???m??? LV Diastolic Volume MOD 4C 67.4 cm??? LV Systolic Volume MOD 4C 28.9 cm??? LV Ejection Fraction MOD 4C 57.1 % LV Cardiac Index MOD 4C 2359.9 cm???/min???m??? LV Diastolic Length 4C 7.4 cm LV Systolic Length 4C 6.6 cm LV Diastolic Volume MOD 2C 96.5 cm??? LV Systolic Volume MOD 2C 37.4 cm??? LV Ejection Fraction MOD 2C 61.3 % LV Cardiac Index MOD 2C 3626.9 cm???/min???m??? LV Diastolic Length 2C 7.2 cm LV Systolic Length 2C 6.3 cm LA Volume 88.1 cm??? 18 - 58 / 22 - 52 cm??? LA Volume Index 45.8 cm???/m??? 16 - 28 cm???/m??? M-MODE Aortic Root Diameter MM 4.1 cm AV Cusp Separation MM 2.4 cm DOPPLER AV Peak Velocity 145.2 cm/s AV Peak Gradient 8.4 mmHg AI Peak Velocity 388.4 cm/s AI Peak Gradient 60.3 mmHg AI Pressure Half Time 939.1 ms MV Area PHT 3.6 cm??? MV Deceleration Time 176.0 ms TR Peak Velocity 282.3 cm/s TR Peak Gradient 31.9 mmHg Right Ventricular Systolic Press 35.7 mmHg FINDINGS Left Ventricle Left ventricular ejection fraction is estimated at 45-50 %. Left ventricular cavity size normal. Mildly increased septal wall thickness. Moderately increased posterior wall thickness. No obvious regional wall motion abnormalities. Right Ventricle Mild right ventricular dilatation. Mild pulmonary hypertension. Right Atrium Mild right atrial dilatation. No right atrial thrombus or mass seen. Left Atrium Moderately increased left atrial diameter. Severely increased left atrial volume. Mildly increased left atrial area. No left atrial thrombus or mass present. Mitral Valve Structurally normal mitral valve. No evidence for mitral valve prolapse. No mitral stenosis. Mild to moderate mitral regurgitation. Aortic Valve Trileaflet aortic valve. Mild to moderate aortic regurgitation. No aortic stenosis. Tricuspid Valve Structurally normal tricuspid valve. Mild tricuspid regurgitation. Pulmonic Valve Structurally normal pulmonic valve. Mild pulmonic regurgitation. Pericardium Trace pericardial effusion. Aorta Moderate aortic dilatation at the level of the sinotubular junction 41 mm CONCLUSIONS Mildly impaired LV function with EF at 45 to 50% and Biatrial enlargement Mild to moderate aortic and mitral regurgitation Mild pulmonary hypertension Trace pericardial effusion Previewed by: Dr. Tadeo Sena MD (Electronically Signed) Final Date: 06 Feb 2025 18:43
[2025-02-06] MEDS: APIXABAN 5 MG TAB PO SCH (20:42)
[2025-02-06] MEDS: hydrOXYzine pamoate 25 MG CAP PO SCH (20:42)
[2025-02-07] MEDS: LEVOTHYROXINE 75 MCG TAB PO SCH (06:10)
--- NOTE | 2025-02-07 07:40 | P.HPIM ---
History of Present Illness This is a pleasant 69 years old female with past medical problems as below Presents because of palpitation of 4 to 5 days She wakes up in the middle of night feeling with panic attack if she is going to . She denies chest pain She has little cough but is a dry note significant dyspnea Denies specific GI/ symptoms. No headache dizziness weakness numbness She denies smoking alcohol or illicit drugs On exam she has no leg edema and no exertional dyspnea Vitals stable and afebrile. Labs including CBC, BMP INR are unremarkable Troponin negative less than 0.012. proBNP is 4080. TSH 1.8. Echocardiogram done showing ejection fraction of 45 to 50%, mild to moderate aortic and mitral regurgitation Chest x-ray showing borderline heart size and interstitial density: Consider consolidation or pleural effusion Review of Systems Review of systems CONSTITUTIONAL: No fever, no malaise, no fatigue. HEENT: No recent visual problems or hearing problems. Denied any sore throat. CARDIOVASCULAR: No orthopnea, PND, no palpitations, no syncope. PULMONARY: No shortness of breath, no cough, no hemoptysis. GASTROINTESTINAL: No diarrhea, no nausea, no vomiting, no abdominal pain. Normoactive bowel sounds. NEUROLOGICAL: No headaches, no weakness, no numbness. HEMATOLOGICAL: Denies any bleeding or petechiae. GENITOURINARY: Denies any burning micturition, frequency, or urgency. MUSCULOSKELETAL/RHEUMATOLOGICAL: Denies any joint pain, swelling, or any muscle pain. ENDOCRINE: Denies any polyuria or polydipsia. Past Medical History Past Medical History: Atrial Fibrillation, Cancer, Hyperlipidemia, Hypertension, Osteoarthritis (OA), Thyroid Disorder Additional Past Medical History / Comment(s): SOB ,"2 leaky heart valves", enl arged aorta-not sure location, skin CA, see dr Smith's h & p History of Any Multi-Drug Resistant Organisms: None Reported Past Surgical History: Cardiac Ablation, Tonsillectomy Additional Past Surgical History / Comment(s): partial thyroidectomy Past Anesthesia/Blood Transfusion Reactions: No Reported Reaction, Motion Sickness Additional Past Anesthesia/Blood Transfusion Reaction / Comment(s): No hx blood transfusion Past Psychological History: Anxiety, Depression Smoking Status: Former smoker - Past Family History Mother Family Medical History: AFIB Brother(s) Additional Family Medical History / Comment(s): "clot in the heart" Medications and Allergies Home Medications Medication Instructions Recorded Confirmed Type Apixaban [Eliquis] 5 mg PO BID 11/21/22 02/06/25 History Ezetimibe [Zetia] 10 mg PO DAILY 11/21/22 02/06/25 History Levothyroxine Sodium [Synthroid] 150 mcg PO SUTUWETHSA 11/21/22 02/06/25 History Levothyroxine Sodium [Synthroid] 175 mcg PO MOFR 11/21/22 02/06/25 History Losartan [Cozaar] 25 mg PO DAILY 11/21/22 02/06/25 History Sertraline [Zoloft] 100 mg PO DAILY 11/21/22 02/06/25 History Metoprolol Succinate [Metoprolol 50 mg PO DAILY 08/11/24 02/06/25 History Succinate ER] Cholecalciferol (Vitamin D3) 50 mcg PO DAILY 02/06/25 02/06/25 History [Vitamin D3 (50 Mcg = 2000 Iu)] Sertraline [Zoloft] 50 mg PO DAILY 02/06/25 02/06/25 History hydrOXYzine pamoate [Vistaril] 50 mg PO HS 02/06/25 02/06/25 History Allergies Allergy/AdvReac Type Severity Reaction Status Date / Time No Known Allergies Allergy Verified 02/06/25 12:30 Physical Exam Vitals: Vital Signs Temp Pulse Pulse Resp BP Pulse Ox 02/06/25 18:03 89 17 100/78 94 L 02/06/25 17:02 96 17 140/109 94 L 02/06/25 15:19 120 H 17 104/79 94 L 02/06/25 14:10 98 16 123/86 95 02/06/25 13:25 84 17 114/89 94 L 02/06/25 13:00 76 17 118/80 93 L 02/06/25 12:30 76 19 111/79 95 02/06/25 12:00 75 12 107/77 91 L 02/06/25 11:30 75 16 96/83 91 L 02/06/25 11:15 146 H 20 96/83 92 L 02/06/25 10:31 154 H 02/06/25 10:22 151 H 17 02/06/25 10:08 97.5 F L 148 H 22 118/82 94 L Intake and Output 02/06/25 02/06/25 02/06/25 06:59 14:59 22:59 Other: Weight 77.111 kg GENERAL: The patient is alert and oriented x3, not in any acute distress. Well developed, well nourished. HEENT: Pupils are round and equally reacting to light. EOMI. No scleral icterus. No conjunctival pallor. Normocephalic, atraumatic. No pharyngeal erythema. No thyromegaly. CARDIOVASCULAR: S1 and S2 present. No murmurs, rubs, or gallops. PULMONARY: Chest is clear to auscultation, no wheezing , no crackles. ABDOMEN: Soft, nontender, nondistended, normoactive bowel sounds. No palpable organomegaly. MUSCULOSKELETAL: No joint swelling or deformity. EXTREMITIES: No cyanosis, clubbing, or pedal edema. NEUROLOGICAL: Gross neurological examination did not reveal any focal deficits. SKIN: No rashes. no petechiae. Results CBC & Chem 7: 02/06/25 10:46 02/06/25 10:46 Labs: Abnormal Lab Results - Last 24 Hours (Table) 02/06/25 02/06/25 Range/Units 10:46 10:46 MPV 9.4 L (9.5-12.2) fL Carbon Dioxide 21 L (22-30) mmol/L Assessment and Plan Assessment: Atrial flutter/fibrillation with RVR, present on admission Cardiomyopathy with ejection fraction 45 to 50% Hypertension Hyperlipidemia Osteoarthritis Diabetes mellitus Plan: Continue telemetry monitoring. Cardizem drip Cardiology consult Echocardiogram reviewed Labs and medication were reviewed.. Continue same treatment. Continue with symptomatic treatment. Resume home medication. Monitor labs and vitals. DVT and GI prophylaxis. Further recommendations as per clinical course of the patient DVT prophylaxis: Subcutaneous heparin GI Prophylaxis: Pepcid Prognosis is guarded
[2025-02-07 09:08] LABS: Basophils # (A) 0.02 10*3/uL (0.00-0.10); Basophils % (A) 0.4 %; Eosinophils # (A) 0.15 10*3/uL (0.04-0.35); Eosinophils % (A) 2.9 %; HCT 40.3 % (37.2-46.3); HGB 13.5 g/dL (12.0-15.0); Lymphocytes # (A) 1.15 10*3/uL (0.90-5.00); Lymphocytes % (A) 22.5 %; MCH 29.3 pg (27.0-32.0); MCHC 33.5 g/dL (32.0-37.0); MCV 87.4 fL (80.0-97.0); Mean Platelet Volume 9.3 fL (9.5-12.2); Monocytes % (A) 7.8 %; Neutrophils # (A) 3.39 10*3/uL (1.80-7.70); Neutrophils % (A) 66.2 %; Platelet Count 236 10*3/uL (140-440); RBC 4.61 10*6/uL (4.10-5.20); RDW 13.6 % (11.5-14.5); WBC 5.12 10*3/uL (4.50-10.00)
[2025-02-07] MEDS: CHOLECALCIFEROL 25 MCG (1000 IU) TABLET PO SCH (09:20)
[2025-02-07] MEDS: SERTRALINE 50 MG TAB PO SCH (09:20)
[2025-02-07] MEDS: SERTRALINE 100 MG TAB PO SCH (09:21)
[2025-02-07] MEDS: EZETIMIBE 10 MG TAB PO SCH (09:21)
[2025-02-07 09:27] LABS: African American GFR (CKD) >90 (>60 ml/min/1.73 sqM); Anion Gap 11 mmol/L; Blood Urea Nitrogen 16 mg/dL (7-17); Calcium 9.1 mg/dL (8.4-10.2); Carbon Dioxide 18 mmol/L (22-30); Chloride 109 mmol/L (98-107); Glucose 112 mg/dL (74-99); Non-African American GFR(CKD) 81 (>60 ml/min/1.73 sqM); Potassium 4.5 mmol/L (3.5-5.1); Sodium 138 mmol/L (137-145)
--- NOTE | 2025-02-07 10:43 | P.PN ---
Subjective This is a pleasant 69 years old female with past medical problems as below Presents because of palpitation of 4 to 5 days She wakes up in the middle of night feeling with panic attack if she is going to . She denies chest pain She has little cough but is a dry note significant dyspnea Denies specific GI/ symptoms. No headache dizziness weakness numbness She denies smoking alcohol or illicit drugs On exam she has no leg edema and no exertional dyspnea Vitals stable and afebrile. Labs including CBC, BMP INR are unremarkable Troponin negative less than 0.012. proBNP is 4080. TSH 1.8. Echocardiogram done showing ejection fraction of 45 to 50%, mild to moderate aortic and mitral regurgitation Chest x-ray showing borderline heart size and interstitial density: Consider consolidation or pleural effusion 02/07 patient feels much better No chest pain or dyspnea Heart rate in mid 90 She remains on Cardizem at 5 mg/h Objective - Vital Signs Vital signs: Vital Signs Temp 97.4 F L 02/07/25 08:00 Pulse 95 02/07/25 08:00 Resp 16 02/07/25 08:00 BP 107/67 02/07/25 08:00 Pulse Ox 95 02/07/25 08:00 FiO2 Intake & Output 02/06/25 02/07/25 02/07/25 18:59 06:59 18:59 Intake Total 638.167 Balance 638.167 Weight 77.111 kg 77 kg Intake: Intake, IV Titration 98.167 Amount Diltiazem 125 mg In 98.167 Dextrose 5% in Water 100 ml @ 5 MG/HR 5 mls/hr IV .Q24H [facility] Rx#:[id number] Oral 540 Other: Voiding Method Toilet - Exam GENERAL: The patient is alert and oriented x3, not in any acute distress. Well developed, well nourished. HEENT: Pupils are round and equally reacting to light. EOMI. No scleral icterus. No conjunctival pallor. Normocephalic, atraumatic. No pharyngeal erythema. No thyromegaly. CARDIOVASCULAR: S1 and S2 present. No murmurs, rubs, or gallops. PULMONARY: Chest is clear to auscultation, no wheezing , no crackles. ABDOMEN: Soft, nontender, nondistended, normoactive bowel sounds. No palpable organomegaly. MUSCULOSKELETAL: No joint swelling or deformity. EXTREMITIES: No cyanosis, clubbing, or pedal edema. NEUROLOGICAL: Gross neurological examination did not reveal any focal deficits. SKIN: No rashes. no petechiae. - Labs CBC & Chem 7: 02/07/25 08:48 02/07/25 08:48 Labs: Abnormal Lab Results - Last 24 Hours (Table) 02/06/25 02/06/25 02/07/25 Range/Units 10:46 10:46 08:48 MPV 9.4 L 9.3 L (9.5-12.2) fL Chloride (98-107) mmol/L Carbon Dioxide 21 L (22-30) mmol/L Glucose (74-99) mg/dL 02/07/25 Range/Units 08:48 MPV (9.5-12.2) fL Chloride 109 H (98-107) mmol/L Carbon Dioxide 18 L (22-30) mmol/L Glucose 112 H (74-99) mg/dL Assessment and Plan Assessment: Atrial flutter/fibrillation with RVR, present on admission Cardiomyopathy with ejection fraction 45 to 50% Hypertension Hyperlipidemia Osteoarthritis Diabetes mellitus Plan: Continue telemetry monitoring. Cardizem drip Cardiology consult Echocardiogram reviewed Labs and medication were reviewed.. Continue same treatment. Continue with symptomatic treatment. Resume home medication. Monitor labs and vitals. DVT and GI prophylaxis. Further recommendations as per clinical course of the patient DVT prophylaxis: Subcutaneous heparin GI Prophylaxis: Pepcid Prognosis is guarded
--- NOTE | 2025-02-07 14:43 | P.CRDCN ---
History of Present Illness Consult date: 02/07/25 Consult reason: atrial fibrillation Chief complaint: A-fib, shortness of breath History of present illness: History of present illness: Patient is a pleasant 69-year-old female with significant past medical history of persistent atrial fibrillation status post ablation x 2 who presented with A- fib with RVR. She had initial ablation 02/2023 and more recently had ablation 10/16/2024. She had been doing well post ablation and then approximately 1-1/2 weeks ago started waking up with episodes of shortness of breath and what felt like panic attacks. Her heart rate would be increased at times to the 150s. She was increased on her metoprolol however was still having symptoms. Echocardiogram 02/06 with EF 45-50%. Lab work reviewed hemoglobin 13.3, creatinine 0.75, BNP 4080, troponin negative, TSH normal. She denies any chest pain or pressure. No dizziness. She states she really does not want to have any more procedures. REVIEW OF SYSTEMS: No fever or chills. No cough or expectoration. No diaphoresis. Patient denies headache, dizziness, blurred vision, double vision. Patient denies any stomach discomfort. No nausea, vomiting. No hematochezia. No hematemesis. Denies any black stools or blood in his stools. Denies dysuria or hematuria. No muscle weakness or numbness. No chest pain or pressure. Reports f eeling short of breath. PHYSICAL EXAMINATION: This is a 69-year-old female in no apparent distress at the time of my examination. HEENT: Head is atraumatic, normocephalic. Pupils are equal, round. Sclerae anicteric. Conjunctivae are clear. Mucous membranes of the mouth are moist. Neck is supple. There is no jugular venous distention. No carotid bruit is heard. CHEST EXAMINATION: Lungs are clear to auscultation. No chest wall tenderness is noted on palpation or with deep breathing. HEART EXAMINATION: Heart regular irregular rate and rhythm. S1, S2 heard. No murmurs, gallops or rub. ABDOMEN: Soft, nontender. Bowel sounds are heard. EXTREMITIES: 2+ peripheral pulses with no evidence of peripheral edema and no calf tenderness noted. NEUROLOGIC EXAMINATION: Patient is awake, alert and oriented x3. IMPRESSION AND PLAN: Paroxysmal atrial fibrillation Dyslipidemia Chronic systolic heart failure Hypertension Hyperlipidemia PLAN: We discussed rhythm control versus rate control for management of atrial fibrillation. Will increase metoprolol to 50 mg twice a day. Wean off Cardizem drip. Lasix 20 mg IV x 1. Continue telemetry. Will monitor overnight. Further recommendations pending clinical course. I am dictating on behalf of Dr. Rogers Ewing's history/physical and asses sment/plan. Past Medical History Past Medical History: Atrial Fibrillation, Cancer, Hyperlipidemia, Hypertension, Osteoarthritis (OA), Thyroid Disorder Additional Past Medical History / Comment(s): SOB ,"2 leaky heart valves", enlarged aorta-not sure location, skin CA, see dr Smith's h & p History of Any Multi-Drug Resistant Organisms: None Reported Past Surgical History: Cardiac Ablation, Tonsillectomy Additional Past Surgical History / Comment(s): partial thyroidectomy Past Anesthesia/Blood Transfusion Reactions: No Reported Reaction, Motion Sickness Additional Past Anesthesia/Blood Transfusion Reaction / Comment(s): No hx blood transfusion Past Psychological History: Anxiety, Depression Smoking Status: Former smoker - Past Family History Mother Family Medical History: AFIB Brother(s) Additional Family Medical History / Comment(s): "clot in the heart" Medications and Allergies Home Medications Medication Instructions Recorded Confirmed Type Apixaban [Eliquis] 5 mg PO BID 11/21/22 02/06/25 History Ezetimibe [Zetia] 10 mg PO DAILY 11/21/22 02/06/25 History Levothyroxine Sodium [Synthroid] 150 mcg PO SUTUWETHSA 11/21/22 02/06/25 History Levothyroxine Sodium [Synthroid] 175 mcg PO MOFR 11/21/22 02/06/25 History Losartan [Cozaar] 25 mg PO DAILY 11/21/22 02/06/25 History Sertraline [Zoloft] 100 mg PO DAILY 11/21/22 02/06/25 History Metoprolol Succinate [Metoprolol 50 mg PO DAILY 08/11/24 02/06/25 History Succinate ER] Cholecalciferol (Vitamin D3) 50 mcg PO DAILY 02/06/25 02/06/25 History [Vitamin D3 (50 Mcg = 2000 Iu)] Sertraline [Zoloft] 50 mg PO DAILY 02/06/25 02/06/25 History hydrOXYzine pamoate [Vistaril] 50 mg PO HS 02/06/25 02/06/25 History Allergies Allergy/AdvReac Type Severity Reaction Status Date / Time No Known Allergies Allergy Verified 02/06/25 12:30 Physical Exam Vitals: Vital Signs Temp Pulse Pulse Resp BP BP Pulse Ox 02/07/25 04:00 97.9 F 84 16 106/71 97 02/07/25 02:00 87 15 02/07/25 00:00 98.2 F 89 16 107/72 94 L 02/06/25 22:00 92 15 02/06/25 21:27 98.0 F 86 16 119/84 97 02/06/25 21:10 98.0 F 85 18 105/85 94 L 02/06/25 20:28 89 18 106/64 95 02/06/25 18:03 89 17 100/78 94 L 02/06/25 17:02 96 17 140/109 94 L 02/06/25 15:19 120 H 17 104/79 94 L 02/06/25 14:10 98 16 123/86 95 02/06/25 13:25 84 17 114/89 94 L 02/06/25 13:00 76 17 118/80 93 L 02/06/25 12:30 76 19 111/79 95 02/06/25 12:00 75 12 107/77 91 L 02/06/25 11:30 75 16 96/83 91 L 02/06/25 11:15 146 H 20 96/83 92 L 02/06/25 10:31 154 H 02/06/25 10:22 151 H 17 02/06/25 10:08 97.5 F L 148 H 22 118/82 94 L Intake and Output 02/06/25 02/07/25 02/07/25 22:59 06:59 14:59 Intake Total 540 98.167 Balance 540 98.167 Intake: Intake, IV Titration 98.167 Amount Diltiazem 125 mg In 98.167 Dextrose 5% in Water 100 ml @ 5 MG/HR 5 mls/hr IV .Q24H [facility] Rx#:[id number] Oral 540 Other: Voiding Method Toilet Toilet Weight 77.111 kg 77 kg Results 02/07/25 08:48 02/07/25 08:48 Cardiac Enzymes 05/30/25 05/30/25 Range/Units 10:46 10:46 AST 20 (14-36) U/L Troponin I <0.012 (0.000-0.034) ng/mL Coagulation 02/06/25 Range/Units 10:46 PT 11.8 (10.0-12.5) sec APTT 24.2 (22.0-30.0) sec CBC 02/06/25 02/07/25 Range/Units 10:46 08:48 WBC 5.55 5.12 (4.50-10.00) 10*3/uL RBC 4.57 4.61 (4.10-5.20) 10*6/uL Hgb 13.3 13.5 (12.0-15.0) g/dL Hct 40.0 40.3 (37.2-46.3) % Plt Count 248 236 (140-440) 10*3/uL Comprehensive Metabolic Panel 02/06/25 Range/Units 10:46 Sodium 137 (137-145) mmol/L Potassium 3.9 (3.5-5.1) mmol/L Chloride 104 (98-107) mmol/L Carbon Dioxide 21 L (22-30) mmol/L BUN 17 (7-17) mg/dL Creatinine 0.75 (0.52-1.04) mg/dL Glucose 88 (74-99) mg/dL Calcium 9.4 (8.4-10.2) mg/dL AST 20 (14-36) U/L ALT 24 (4-34) U/L Alkaline Phosphatase 56 (38-126) U/L Total Protein 6.4 (6.3-8.2) g/dL Albumin 3.9 (3.5-5.0) g/dL Current Medications Generic Name Dose Route Start Last Admin Trade Name Freq PRN Reason Stop Dose Admin Acetaminophen 650 mg 02/06/25 17:09 02/06/25 17:18 Acetaminophen Tab 325 Mg Tab PO 650 mg Q6HR PRN Administration Fever and/ or Pain Apixaban 5 mg 02/06/25 21:00 02/06/25 20:42 Apixaban 5 Mg Tab PO 5 mg BID [facility] Administration Protocol Cholecalciferol 50 mcg 02/07/25 09:00 Cholecalciferol 25 Mcg (1000 Iu) Tablet PO DAILY [facility] Ezetimibe 10 mg 02/07/25 09:00 Ezetimibe 10 Mg Tab PO DAILY [facility] Hydroxyzine Pamoate 50 mg 02/06/25 21:00 02/06/25 20:42 Hydroxyzine Pamoate 25 Mg Cap PO 50 mg HS GUERRERO Administration Diltiazem HCl 125 mg/ Dextrose 125 mls @ 5 mls/hr 02/06/25 11:00 02/07/25 06:52 /Water IV 5 mg/hr .Q24H [facility] 5 mls/hr Administration Protocol 5 MG/HR Levothyroxine Sodium 150 mcg 02/07/25 06:30 02/07/25 06:10 Levothyroxine 75 Mcg Tab PO 150 mcg SUTUWETHSA [facility]ERRERO Administration Levothyroxine Sodium 176 mcg 02/09/25 06:30 Levothyroxine 88 Mcg Tab PO [id number] [facility] Naloxone HCl 0.2 mg 02/06/25 13:12 Naloxone 0.4 Mg/Ml 1 Ml Vial IV Q2M PRN Opioid Reversal Sertraline HCl 50 mg 02/07/25 09:00 Sertraline 50 Mg Tab PO DAILY [facility] Sertraline HCl 100 mg 02/07/25 09:00 Sertraline 100 Mg Tab PO DAILY [facility] Intake and Output 02/06/25 02/07/25 02/07/25 22:59 06:59 14:59 Intake Total 540 98.167 Balance 540 98.167 Intake: Intake, IV Titration 98.167 Amount Diltiazem 125 mg In 98.167 Dextrose 5% in Water 100 ml @ 5 MG/HR 5 mls/hr IV .Q24H [facility] Rx#:[id number] Oral 540 Other: Voiding Method Toilet Toilet Weight 77.111 kg 77 kg 02/07/25 08:48 02/06/25 10:46
[2025-02-07] MEDS: FUROSEMIDE 10 MG/ML 2 ML VIAL IV ONE (14:53)
[2025-02-07] MEDS: METOPROLOL TARTRATE 50 MG TAB PO SCH (14:53)
[2025-02-08] MEDS: FUROSEMIDE 10 MG/ML 4 ML VIAL IV STA (00:18)
[2025-02-08] MEDS: METOPROLOL TARTRATE 50 MG TAB PO STA (00:18)
[2025-02-08] MEDS: METOPROLOL TARTRATE 50 MG TAB PO SCH (06:48)
--- NOTE | 2025-02-08 13:56 | P.PN ---
Subjective Progress Note Date: 02/08/25 History of present illness: Patient is a pleasant 69-year-old female with significant past medical history of persistent atrial fibrillation status post ablation x 2 who presented with A- fib with RVR. She had initial ablation 02/2023 and more recently had ablation 10/16/2024. She had been doing well post ablation and then approximately 1-1/2 weeks ago started waking up with episodes of shortness of breath and what felt like panic attacks. Her heart rate would be increased at times to the 150s. She was increased on her metoprolol however was still having symptoms. Echocardiogram 02/06 with EF 45-50%. Lab work reviewed hemoglobin 13.3, creatinine 0.75, BNP 4080, troponin negative, TSH normal. She denies any chest pain or pressure. No dizziness. She states she really does not want to have any more procedures. 02/08/2025 Well-controlled [id number]. Metoprolol was increased to 100 mg twice daily. She did have episode where she felt short of breath overnight again. No chest pain or pressure. PHYSICAL EXAMINATION: This is a 69-year-old female in no apparent distress at the time of my examination. HEENT: Head is atraumatic, normocephalic. Pupils are equal, round. Sclerae anicteric. Conjunctivae are clear. Mucous membranes of the mouth are moist. Neck is supple. There is no jugular venous distention. No carotid bruit is heard. CHEST EXAMINATION: Lungs are clear to auscultation. No chest wall tenderness is noted on palpation or with deep breathing. HEART EXAMINATION: Heart regular irregular rate and rhythm. S1, S2 heard. No murmurs, gallops or rub. ABDOMEN: Soft, nontender. Bowel sounds are heard. EXTREMITIES: 2+ peripheral pulses with no evidence of peripheral edema and no calf tenderness noted. NEUROLOGIC EXAMINATION: Patient is awake, alert and oriented x3. IMPRESSION AND PLAN: Paroxysmal atrial fibrillation Dyslipidemia Chronic systolic heart failure Hypertension Hyperlipidemia PLAN: We had a long discussion regarding rhythm control versus rate control for management of atrial fibrillation. Discussed option to include increasing metoprolol to 150 mg twice daily and monitor blood pressure as this has been low; Or attempt rhythm control with flecainide 100 mg twice daily and cardioversion tomorrow. Start flecainide and plan for cardioversion tomorrow. N.p.o. after midnight. Continue telemetry. Will monitor overnight. Further recommendations pending clinical course. I am dictating on behalf of Dr. Rogers Ewing's history/physical and assessm ent/plan. Objective - Vital Signs Vital signs: Vital Signs Temp 97.6 F 02/08/25 04:00 Pulse 126 H 02/08/25 04:00 Resp 16 02/08/25 04:00 BP 98/72 02/08/25 04:00 Pulse Ox 96 02/08/25 04:00 FiO2 Intake & Output 02/07/25 02/08/25 02/08/25 18:59 06:59 18:59 Intake Total 240 560 240 Output Total 1 Balance 240 559 240 Weight 71.2 kg Intake: IV 20 Invasive Line 1 20 Oral 240 540 240 Output: Stool 1 Other: Voiding Method Toilet # Bowel Movements 0 - Labs CBC & Chem 7: 02/07/25 08:48 02/07/25 08:48 Labs: Abnormal Lab Results - Last 24 Hours (Table) 02/07/25 02/07/25 Range/Units 08:48 08:48 MPV 9.3 L (9.5-12.2) fL Chloride 109 H (98-107) mmol/L Carbon Dioxide 18 L (22-30) mmol/L Glucose 112 H (74-99) mg/dL
[2025-02-08] MEDS: FLECAINIDE 50 MG TAB PO SCH (15:07)
[2025-02-09 00:02] VITALS: RESP 18
[2025-02-09] MEDS ORDERED: MIDAZOLAM 2 MG/2 ML VIAL IV PRN (06:00)
[2025-02-09] MEDS ORDERED: BENZOCAINE SPRAY 1 EACH MM PRN (06:00)
[2025-02-09] MEDS ORDERED: fentaNYL (PF) 50 MCG/ML 2 ML AMP IVP PRN (06:00)
[2025-02-09] MEDS: LEVOTHYROXINE 88 MCG TAB PO SCH (06:06)
[2025-02-09 10:03] VITALS: BP 105/71; PULSE 72; TEMP 97.2
--- NOTE | 2025-02-09 10:10 | P.PN ---
Subjective This is a pleasant 69 years old female with past medical problems as below Presents because of palpitation of 4 to 5 days She wakes up in the middle of night feeling with panic attack if she is going to . She denies chest pain She has little cough but is a dry note significant dyspnea Denies specific GI/ symptoms. No headache dizziness weakness numbness She denies smoking alcohol or illicit drugs On exam she has no leg edema and no exertional dyspnea Vitals stable and afebrile. Labs including CBC, BMP INR are unremarkable Troponin negative less than 0.012. proBNP is 4080. TSH 1.8. Echocardiogram done showing ejection fraction of 45 to 50%, mild to moderate aortic and mitral regurgitation Chest x-ray showing borderline heart size and interstitial density: Consider consolidation or pleural effusion 02/07 patient feels much better No chest pain or dyspnea Heart rate in mid She remains on Cardizem at 5 mg/h 02/08 Patient sitting up in bed eating her breakfast. She got 1 dose of IV Lasix today and she feels better breathing No chest pain C Engineer about the patient and plan to add flecainide and possible cardioversion tomorrow Objective - Vital Signs Vital signs: Vital Signs Temp 97.6 F 02/08/25 12:00 Pulse 120 H 02/08/25 12:00 Resp 18 02/08/25 12:00 BP 102/78 02/08/25 12:00 Pulse Ox 97 02/08/25 12:00 FiO2 Intake & Output 02/07/25 02/08/25 02/08/25 18:59 06:59 18:59 Intake Total 240 560 250 Output Total 1 Balance 240 559 250 Weight 71.2 kg Intake: IV 20 10 Invasive Line 1 20 10 Oral 240 540 240 Output: Stool 1 Other: Voiding Method Toilet Toilet # Bowel Movements 0 - Exam GENERAL: The patient is alert and oriented x3, not in any acute distress. Well developed, well nourished. HEENT: Pupils are round and equally reacting to light. EOMI. No scleral icterus. No conjunctival pallor. Normocephalic, atraumatic. No pharyngeal erythema. No thyromegaly. CARDIOVASCULAR: S1 and S2 present. No murmurs, rubs, or gallops. PULMONARY: Chest is clear to auscultation, no wheezing , no crackles. ABDOMEN: Soft, nontender, nondistended, normoactive bowel sounds. No palpable organomegaly. MUSCULOSKELETAL: No joint swelling or deformity. EXTREMITIES: No cyanosis, clubbing, or pedal edema. NEUROLOGICAL: Gross neurological examination did not reveal any focal deficits. SKIN: No rashes. no petechiae. - Labs CBC & Chem 7: 02/07/25 08:48 02/07/25 08:48 Assessment and Plan Assessment: Atrial flutter/fibrillation with RVR, present on admission Cardiomyopathy with ejection fraction 45 to 50% Hypertension Hyperlipidemia Osteoarthritis Diabetes mellitus Plan: Continue telemetry monitoring. Cardizem drip Cardiology consult Echocardiogram reviewed Labs and medication were reviewed.. Continue same treatment. Continue with symptomatic treatment. Resume home medication. Monitor labs and vitals. DVT and GI prophylaxis. Further recommendations as per clinical course of the patient DVT prophylaxis: Subcutaneous heparin GI Prophylaxis: Pepcid Prognosis is guarded
--- NOTE | 2025-02-09 11:31 | P.PN ---
Subjective Progress Note Date: 02/09/25 History of present illness: Patient is a pleasant 69-year-old female with significant past medical history of persistent atrial fibrillation status post ablation x 2 who presented with A- fib with RVR. She had initial ablation 02/2023 and more recently had ablation 10/16/2024. She had been doing well post ablation and then approximately 1-1/2 weeks ago started waking up with episodes of shortness of breath and what felt like panic attacks. Her heart rate would be increased at times to the 150s. She was increased on her metoprolol however was still having symptoms. Echocardiogram 02/06 with EF 45-50%. Lab work reviewed hemoglobin 13.3, creatinine 0.75, BNP 4080, troponin negative, TSH normal. She denies any chest pain or pressure. No dizziness. She states she really does not want to have any more procedures. 02/08/2025 Well-controlled [id number]. Metoprolol was increased to 100 mg twice daily. She did have episode where she felt short of breath overnight again. No chest pain or pressure. 02/09 Patient seen and examined. Patient is converted to sinus rhythm and feels much better today and back to normal. Blood pressure 105/71, heart rate 72, pulse ox 90% on room air. Telemetry sinus arrhythmia. Patient has been on flecainide and Lopressor as well as Eliquis. PHYSICAL EXAMINATION: This is a 69-year-old female in no apparent distress at the time of my examination. HEENT: Head is atraumatic, normocephalic. Pupils are equal, round. Sclerae anicteric. Conjunctivae are clear. Mucous membranes of the mouth are moist. Neck is supple. There is no jugular venous distention. No carotid bruit is heard. CHEST EXAMINATION: Lungs are clear to auscultation. No chest wall tenderness is noted on palpation or with deep breathing. HEART EXAMINATION: Heart regular regular rate and rhythm. S1, S2 heard. No murmurs, gallops or rub. ABDOMEN: Soft, nontender. Bowel sounds are heard. EXTREMITIES: 2+ peripheral pulses with no evidence of peripheral edema and no calf tenderness noted. NEUROLOGIC EXAMINATION: Patient is awake, alert and oriented x3. IMPRESSION AND PLAN: Paroxysmal atrial fibrillation Dyslipidemia Chronic systolic heart failure Hypertension Hyperlipidemia PLAN: Continue current cardiac medications Patient is cleared for discharge from cardiology and will follow-up in the office in 1 week. I am dictating on behalf of Dr. Rogers Ewing's history/physical and assessment/plan. Objective - Vital Signs Vital signs: Vital Signs Temp 97.2 F L 02/09/25 08:00 Pulse 72 02/09/25 08:00 Resp 18 02/09/25 08:00 BP 105/71 02/09/25 08:00 Pulse Ox 98 02/09/25 08:00 FiO2 Intake & Output 02/08/25 02/09/25 02/09/25 18:59 06:59 18:59 Intake Total 500 240 Output Total 1 1 Balance 499 240 -1 Weight 71.1 kg Intake: IV 20 Invasive Line 1 20 Oral 480 240 Output: Stool 1 1 Other: Voiding Method Toilet Toilet Toilet # Voids 0 1 - Labs CBC & Chem 7: 02/07/25 08:48 02/07/25 08:48
--- NOTE | 2025-02-12 14:53 | CDI ---
Documentation Clarification Form Date: 02/12/2025 02:48:06 PM From: Olga Jin RN, CCDS Email: [email or web address] Admit Date: 02/06/2025 01:14:00 PM Patient Name: Kena Pham Visit Number: [id number] Discharge Date: 02/09/2025 12:22:00 PM ATTENTION: The Clinical Documentation Specialists (CDI) and [facility] Coding Staff appreciate your assistance in clarifying documentation. Please respond to the clarification below the line at the bottom and electronically sign. The CDI & [facility] Coding staff will review the response and follow-up if needed. Please note: Queries are made part of the Legal Health Record. If you have any questions, please contact the author of this message via ITS. Doctor Brown E Sheet The patient had the documented diagnosis of chronic systolic CHF and received IV Lasix. Additional information regarding the CHF is requested. History/Risk Factors: A fib, A flutter with past ablations, Ca, HLD and HTN. From the ED note: "Patient has had issues with shortness of breath and racing heart when she lays down at night. Symptoms only seem to come on during the middle of the night. She feels like she cannot breathe. Does admit to some lower extremity swelling." Admitted with Atrial flutter/fibrillation with RVR, present on admission. Clinical Indicators: 02/06 VS/Pulse OX: HR 151 RR 22 pox 91% 02/06 BNP: 4080 02/06 Echocardiogram Results: Mildly impaired LV function with EF at 45 to 50% and Biatrial enlargement. Mild to moderate aortic and mitral regurgitation. Mild pulmonary hypertension. Trace pericardial effusion. 02/06 Chest X Ray: Borderline heart size and interstitial densities. Consider mild pulmonary vascular congestion. 02/07 Cardiology consult: "Chronic systolic heart failure." 02/08 IM: "She got 1 dose of IV Lasix today and she feels better breathing. Atrial flutter/fibrillation with RVR, present on admission. Cardiomyopathy with ejection fraction 45 to 50%." Treatment: IV Lasix 20mg x1 on 02/07; IV Lasix 40mg x1 on 02/08; Metoprolol 50mg po BID 02/07; Metoprolol 100mg po BID 02/08-02/09 In your professional opinion, can you please clarify the CHF: [ x ] Acute on Chronic Systolic Heart Failure (reduced EF) [ ] Chronic Systolic Heart Failure only (reduced EF) [ ] Other, please specify [ ] Unable to determine MTDD
--- NOTE | 2025-02-14 20:37 | P.DS ---
Providers Date of admission: 02/06/25 13:14 Attending physician: Monse Hoffman Consults: 02/06/25 13:12 Consult Physician Urgent Consulting Provider: [facility] Consult Reason/Comments: aflutter with rvr Do you want consulting provider notified?: Yes Primary care physician: Alejandra Alva DO Hospital Course: Final Diagnosis Atrial flutter/fibrillation with RVR, present on admission Cardiomyopathy with ejection fraction 45 to 50% Hypertension Hyperlipidemia Osteoarthritis Diabetes mellitus Discharge Disposition Patient is stable for discharge home. Cardiology recommending to be discharged with flecainide twice daily. Also, metoprolol dosing was increased. Stop losartan because of decreased blood pressures. Patient to follow up with operator [employer] based [employer] Dr Smith on discharge. Total time taken in discharge planning greater than 35 minutes. Hospital Course This is a pleasant 69 years old female history of atrial fibrillation, hypertension, hyperlipidemia, Diabetes mellitus. Presents because of palpitation of 4 to 5 days. Patient states she woke up from sleeping and felt like she was having a panick attack. She denies chest pain. She has little cough but is a dry note significant d yspnea. Denies specific GI/ symptoms. No headache dizziness weakness numbness. She denies smoking alcohol or illicit drugs. No peripheral edema noted on admission. Chest x-ray showing borderline heart size and interstitial density: Consider consolidation or pleural effusion. Troponin negative less than 0.012. proBNP is 4080. TSH 1.8. Echocardiogram done showing ejection fraction of 45 to 50%, mild to moderate aortic and mitral regurgitation. Labs including CBC, BMP INR are unremarkable. Patient was found to be atrial fibrillation with RVR and was started on IV cardizem. Patient also received IV lasix. Was evaluated by cardiology. Symptoms improved. Patient has been up ambulating without difficulty. She has converted to normal sinus rhythm. Lungs are clear. Patient will be discharged home. Please see medication reconciliation for a list of current medications. Thank you for allowing us to participate in the care of this patient. The impression and plan of care has been dictated by Leila Kwok, Nurse Practitioner as directed. Dr. Gordo MD I have performed a history and physical examination and medical decision making of this patient, discussed the same with the dictator, and agree with the dictators assessment and plan as written, documented as a scribe. Based on total visit time, I have performed more than 50% of this visit. Patient Condition at Discharge: Stable Plan - Discharge Summary Discharge Rx Participant: Yes New Discharge Prescriptions: New Flecainide [Tambocor] 100 mg PO Q12HR #60 tab Metoprolol Tartrate [Lopressor] 100 mg PO BID #60 tab Continue Levothyroxine Sodium [Synthroid] 150 mcg PO SUTUWETHSA Apixaban [Eliquis] 5 mg PO BID Sertraline [Zoloft] 50 mg PO DAILY Cholecalciferol (Vitamin D3) [Vitamin D3 (50 Mcg = 2000 Iu)] 50 mcg PO DAILY Levothyroxine Sodium [Synthroid] 175 mcg PO MOFR Sertraline [Zoloft] 100 mg PO DAILY Ezetimibe [Zetia] 10 mg PO DAILY hydrOXYzine pamoate [Vistaril] 50 mg PO HS Discontinued Metoprolol Succinate [Metoprolol Succinate ER] 50 mg PO DAILY Losartan [Cozaar] 25 mg PO DAILY Discharge Medication List Apixaban [Eliquis] 5 mg PO BID 11/21/22 [History] Ezetimibe [Zetia] 10 mg PO DAILY 11/21/22 [History] Levothyroxine Sodium [Synthroid] 150 mcg PO SUTUWETHSA 11/21/22 [History] Levothyroxine Sodium [Synthroid] 175 mcg PO MOFR 11/21/22 [History] Sertraline [Zoloft] 100 mg PO DAILY 11/21/22 [History] Cholecalciferol (Vitamin D3) [Vitamin D3 (50 Mcg = 2000 Iu)] 50 mcg PO DAILY 02/06/25 [History] Sertraline [Zoloft] 50 mg PO DAILY 02/06/25 [History] hydrOXYzine pamoate [Vistaril] 50 mg PO HS 02/06/25 [History] Flecainide [Tambocor] 100 mg PO Q12HR #60 tab 02/09/25 [Rx] Metoprolol Tartrate [Lopressor] 100 mg PO BID #60 tab 02/09/25 [Rx] Follow up Appointment(s)/Referral(s): Jordan Smith MD [STAFF PHYSICIAN] - 02/16/25 2:30 pm (Appointment with Dr. Ewing) Alejandra Alva DO [Primary Care Provider] - 02/10/25 2:00 pm Patient Instructions/Handouts: A-fib (Atrial Fibrillation) (DC) Discharge Disposition: HOME SELF-CARE
== END 2025-02-09 12:22 | disposition home or self-care (01) | DRG 308 ==
LOC: EC 10:05 → 3SCARD 13:14
PROVIDERS: ADMIT Hospitalist; ATTEND Hospitalist
DX: I48.0 Paroxysmal atrial fibrillation (principal); I50.23 Acute on chronic systolic (congestive) heart failure; I11.0 Hypertensive heart disease with heart failure; E11.9 Type 2 diabetes mellitus without complications; I08.0 Rheumatic disorders of both mitral and aortic valves; I50.22 Chronic systolic (congestive) heart failure; I42.9 Cardiomyopathy, unspecified; I48.92 Unspecified atrial flutter; E78.5 Hyperlipidemia, unspecified; M19.90 Unspecified osteoarthritis, unspecified site; Z79.01 Long term (current) use of anticoagulants; Z79.890 Hormone replacement therapy; Z79.899 Other long term (current) drug therapy; Z87.891 Personal history of nicotine dependence
CPT/HCPCS: 36415; 71046; 80048; 80053; 83605; 83880; 84443; 84484; 85025; 85610; 85730; 93005; 93306; 96365; 96366; 99285

== ENCOUNTER → 2025-03-27 | Outpatient (CLI) | payer MEDICARE ==
--- NOTE | 2025-03-30 07:41 | MM ---
Reason for Exam: Screening (asymptomatic). Last mammogram was performed 1 year(s) and 9 month(s) ago. Patient History: Menarche at age 12. First Full-Term at age 33. Late child-bearing (after 30). Postmenopausal. Paternal grandmother had breast cancer, age 53. Risk Values: Aaliyah 5 year model risk: 2.2%. NCI Lifetime model risk: 6.0%. Prior Study Comparison: 01/23/2019 Bilateral Screening Mammogram, [facility]. 04/04/2021 Bilateral Screening Mammogram, [facility]. 06/12/2023 Bilateral MG 3D screening mammo w/cad, [facility]. Tissue Density: The breasts are heterogeneously dense, which may obscure small masses. Findings: Analyzed By CAD. Right breast: There is no suspicious group of microcalcifications or new suspicious mass. Left breast: There is no suspicious group of microcalcifications or new suspicious mass. Overall Assessment: Negative, BI-RAD 1 Management: Screening Mammogram of both breasts in [address] [facility] will attempt to contact patient to return for supplemental views and ultrasound if indicated. Patient should continue monthly self-breast exams. A clinical breast exam by your physician is recommended on an annual basis. This exam should not preclude additional follow-up of suspicious palpable abnormalities. Note on Aaliyah scores and lifetime risk: 1. A Aaliyah score greater than 3% is considered moderate risk. If this is the case, consider specialist referral to assess eligibility for a risk reducing agent. 2. If overall lifetime risk for the development of breast cancer is 20% or higher, the patient may qualify for future screening with alternating mammogram and breast MRI. [facility], , 03/30/2025 7:39 AM. Electronically signed and approved by: Lexa Crump DO
== END | disposition home or self-care (01) ==
LOC: RADMAMWWP 16:13
PROVIDERS: ATTEND Student in an Organized Health Care Education/Training Program
DX: Z12.31 Encounter for screening mammogram for malignant neoplasm of breast (principal); R92.333 Mammographic heterogeneous density, bilateral breasts; Z78.0 Asymptomatic menopausal state; Z80.3 Family history of malignant neoplasm of breast
CPT/HCPCS: 77063; 77067